=== PATIENT | male | born 1975 | race African-American/Black ===

== ENCOUNTER 2016-09-19 14:12 | Emergency (ER) | payer MEDICAID, SELFPAY ==
[~2016-09-19 14:12] MED LIST: CLAR10CA3 PO; DULO30CA PO; ECOT81TA5 PO; GLIP5TAB8 PO; GLUC1000 PO; GLUC5TAB3 PO; LEVO75TA4 PO; LISI-542 PO; LYRI100C10 PO; METF1000 PO; OMEP40CA2 PO; SIMV20TA2 PO; TYLE325T5 PO; ZEST1TAB5 PO; ZOCO20TA PO
[2016-09-19] MEDS ORDERED: OXAZEPAM 15 MG CAP As Ordered ONE (14:59)
[2016-09-19 15:21] LABS: MEAN CORPUSCULAR HEMOGLOBIN 30.7 pg (27.0-33.0); MEAN CORPUSCULAR HGB CONC 33.2 g/dl (32.0-36.5); MEAN CORPUSCULAR VOLUME 92.4 fl (80.0-96.0); RED CELL DISTRIBUTION WIDTH 14.2 % (11.5-14.5); WHITE BLOOD COUNT 7.8 K/mm3 (4.0-10.0)
[2016-09-19 15:39] LABS: AMPHETAMINES LEVEL URINE NEGATIVE (NEGATIVE); BENZODIAZEPINES URINE NEGATIVE (NEGATIVE); COCAINE METABOLITE URINE POSITIVE (NEGATIVE); CONTROL LINE INT CTR LINE PRESENT; METHADONE URINE NEGATIVE (NEGATIVE); OPIATES URINE NEGATIVE (NEGATIVE); TRICYCLIC ANTIDEPRESS URINE NEGATIVE (NEGATIVE)
[2016-09-19 16:02] LABS: ALBUMIN 3.9 GM/DL (3.2-5.2); ALKALINE PHOSPHATASE 73 U/L (45-117); ALT/SGPT 20 U/L (12-78); ANION GAP 11 MEQ/L (8-16); AST/SGOT 24 U/L (15-37); BILIRUBIN,DIRECT 0.1 MG/DL (0.0-0.2); BILIRUBIN,TOTAL 0.3 MG/DL (0.2-1.0); BLOOD UREA NITROGEN 7 MG/DL (7-18); CALCIUM LEVEL 9.1 MG/DL (8.5-10.1); CARBON DIOXIDE LEVEL 26 MEQ/L (21-32); CHLORIDE LEVEL 102 MEQ/L (98-107); CREATININE FOR GFR 1.05 MG/DL (0.70-1.30); GLOMERULAR FILTRATION RATE > 60.0 (>60); GLUCOSE, FASTING 236 MG/DL (70-105); POTASSIUM SERUM 4.2 MEQ/L (3.5-5.1); SODIUM LEVEL 139 MEQ/L (136-145); TOTAL PROTEIN 7.8 GM/DL (6.4-8.2)
--- NOTE | 2016-09-19 16:55 | ECGEPIP ---
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
--- NOTE | 2016-09-20 03:55 | EDDOCDS ---
Physician Documentation [facility] Name: Maryam Rhodes Age: 41 yrs Sex: Male : 1975 Arrival Date: 09/19/2016 Time: 14:12 Bed OBSERVATION Private MD: Cristal Santana C Disposition: 09/19/16 21:[address] [facility]. Diagnosis are Major depressive disorder, recurrent, Suicidal ideations. - Reason for transfer: Higher level of care. - Accepting physician is Dr Lott. - Condition is Stable. - Problem is an ongoing problem. - Symptoms are unchanged. Historical: - Allergies: no known allergies; - Home Meds: 1. aspirin 81 mg Oral chew 1 tab once daily (Last dose: Unknown) 2. glipizide 5 mg Oral tr24 1 tab once daily (Last dose: Unknown) 3. levothyroxine 75 mcg Oral tab 1 tab once daily (Last dose: Unknown) 4. simvastatin 20 mg Oral tab once daily (Last dose: Unknown) 5. Lyrica 100 mg Oral 2 times per day (Last dose: Unknown) 6. lisinopril 5 mg Oral tab once daily (Last dose: Unknown) 7. omeprazole 40 mg Oral cpDR 1 cap once daily (Last dose: Unknown) - PMHx: Diabetes - NIDDM: controlled; Hypercholesterolemia; Hypertension; Hypothyroidism; - PSHx: Knee Arthroplasty, Right; Knee Arthroplasty, Left; - Social history: Smoking status: Patient uses tobacco products, current some day smoker. Patient uses alcohol on a daily basis. street drugs, cocaine, No barriers to communication noted, The patient speaks fluent Burkin[place], Speaks appropriately for age. - Family history: Not pertinent. - : The pt / caregiver states he / she is not on anticoagulants. Home medication list is obtained from the patient. - Exposure Risk Screening:: None identified. Vital Signs: 09/19 14:13 BP 137 / 76; Pulse 119; Resp 18 S; Temp 98.1(O); Pulse Ox 98% on R/A; Weight 113.4 kg / gr2 250 lbs (R); Height 5 ft. 9 in. (175.26 cm) (R); Pain 4/10; 19:30 BP 136 / 72; Pulse 109; Resp 16; Temp 97.3(O); Pain 6/10; mf4 09/20 03:51 BP 136 / 76; Pulse 89; Resp 16; Temp 96.6(O); Pain 0/10; mf4 09/19 14:13 Body Mass Index 36.92 (113.40 kg, 175.26 cm) gr2 MDM: 09/19 14:28 Consult PFS/PSA/Motor Vehicles Supervisor ordered. sd1 14:28 Consult PFS/PSA/Motor Vehicles Supervisor: Patient's case requires discussion with on-call ca1 Psychiatrist ordered. 14:28 PSA/PFS to call Nursing Technical Sales Advisor, to enter patient data on [place] Safe Act if patient sd1 involuntarily admitted or transferred for SI or HI ordered. 14:28 Confirm accurate psychiatric medication list and times of last dosage ordered. sd1 14:28 Detain Pt Until Medically/PFS Cleared ordered. sd1 14:30 Acetaminophen Level Ordered. EDMS 14:30 Basic Metabolic Profile Ordered. EDMS 14:30 Complete Blood Count Ordered. EDMS 14:30 Drug Eval Toxicology ED Only Ordered. EDMS 14:30 Ethyl Alcohol (ethanol) Ordered. EDMS 14:30 Liver Profile Ordered. EDMS 14:30 Salicylate Level Ordered. EDMS 14:30 Thyroid Stimulating Hormone Ordered. EDMS 14:33 ECG WITH READING ER PHYS+CARDIAG ordered. EDMS 14:40 CREATINE PHOSPHOKINASE Ordered. EDMS 14:51 Financial registration complete. mpb 14:56 Oxazepam 30 mg PO once ordered. sd1 15:06 [facility] Payment Agreement was scanned into zerobound and attached to record. mpb 15:22 Consult PFS/PSA/Motor Vehicles Supervisor complete. bcj 15:22 Consult PFS/PSA/Motor Vehicles Supervisor: Patient's case requires discussion with on-call [facility] Psychiatrist complete. 15:29 Fingerstick Blood Sugar Ordered. EDMS 16:52 REGULAR DIET PLASTIC ALMA+DIET ordered. EDMS 17:22 PSA/PFS to call Nursing Technical Sales Advisor, to enter patient data [place] Safe [place] if patient jfb involuntarily admitted or transferred for SI or HI complete. 18:41 Acetaminophen Level Reviewed. sd1 18:41 Basic Metabolic Profile Reviewed. sd1 18:41 Complete Blood Count Reviewed. sd1 18:41 Drug Eval Toxicology ED Only Reviewed. sd1 18:41 Ethyl Alcohol (ethanol) Reviewed. sd1 18:41 Salicylate Level Reviewed. sd1 18:41 Thyroid Stimulating Hormone Reviewed. sd1 18:41 CREATINE PHOSPHOKINASE Reviewed. sd1 18:41 Fingerstick Blood Sugar Reviewed. sd1 18:41 Liver Profile Reviewed. sd1 18:41 EKG-ADULT Reviewed. sd1 09/20 02:34 [facility] Legal paperwork was scanned into zerobound and attached to record. 1 Administered Medications: 09/19 15:22 Drug: Oxazepam 30 mg [oxazepam 15 mg capsule (2 caps)] Route: PO; [facility] Signatures: Dispatcher [employer] EDMS Mylene Cantu MD MD sd1 Ricardo Ch, RN RN bcj Charmaine Ngo,RN RN kr3 Jessika Acosta, CARLIN PSA jfb Norma Fernandez, CARLIN PSA hm1 Dipak Workman,DAMPER WORKER DAMPER WORKER mf4 Kevin Alejo DO DO cs11 Long Marie, Fidel Reg mpb The chart was reviewed and I authenticate all verbal orders and agree with the evaluation and treatment provided.Corrections: (The following items were deleted from the chart) 14:40 14:33 CREATINE PHOSPHOKINASE+LAB ordered. EDMS EDMS Attachments: 15:06 [facility] Payment Agreement mpb MTDD
--- NOTE | 2016-09-20 03:57 | EDDOCDS ---
Nurse's Notes [facility] Name: Kiarra Rhodes Age: 41 yrs Sex: Male : 1975 Arrival Date: 09/19/2016 Time: 14:12 Bed OBSERVATION Private MD: Cristal Santana C Diagnosis: Major depressive disorder, recurrent;Suicidal ideations Presentation: 09/19 14:17 Presenting complaint: Patient states: homeless for 1 month. reports split with and kr3 had been drinking and using drugs. Reports feeling hopeless, with nothing to live for. No specific plan. Has not been on regular meds for over 1 month. Mental Health Triage Level: Level 2: The patient displays active suicidal ideations. Adult Sepsis Screening: The patient does not have new or worsening altered mentation. Patient's respiratory rate is less than 22. Systolic blood pressure is greater than 100. Patient has a qSOFA score of 0- Negative Sepsis Screen. Suicide/Homicide risk assessment- The patient admits to and/or has been reported to be having suicidal ideations. The patient reports that he/she has a recent or current history of substance abuse. 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 Transition of care: patient was not received from another setting of care. 14:17 Acuity: MENA Level 3 kr3 14:17 Method Of Arrival: Walkin/Carried/Asstd kr3 Triage Assessment: 14:20 General: Appears in no apparent distress, Behavior is appropriate for age. Pain: kr3 Location: left knee and right knee. HIV screening NA for this visit Offered previously. The patient is triaged at the bedside. See Assessment in Nurses Notes section of ED record. Neurological: Level of Consciousness is awake, alert. Respiratory: Respiratory effort is even, unlabored. Derm: Skin is normal. Historical: - Allergies: no known allergies; - Home Meds: 1. aspirin 81 mg Oral chew 1 tab once daily (Last dose: Unknown) 2. glipizide 5 mg Oral tr24 1 tab once daily (Last dose: Unknown) 3. levothyroxine 75 mcg Oral tab 1 tab once daily (Last dose: Unknown) 4. simvastatin 20 mg Oral tab once daily (Last dose: Unknown) 5. Lyrica 100 mg Oral 2 times per day (Last dose: Unknown) 6. lisinopril 5 mg Oral tab once daily (Last dose: Unknown) 7. omeprazole 40 mg Oral cpDR 1 cap once daily (Last dose: Unknown) - PMHx: Diabetes - NIDDM: controlled; Hypercholesterolemia; Hypertension; Hypothyroidism; - PSHx: Knee Arthroplasty, Right; Knee Arthroplasty, Left; - Social history: Smoking status: Patient uses tobacco products, current some day smoker. Patient uses alcohol on a daily basis. street drugs, cocaine, No barriers to communication noted, The patient speaks fluent Estonian, Speaks appropriately for age. - Family history: Not pertinent. - : The pt / caregiver states he / she is not on anticoagulants. Home medication list is obtained from the patient. - Exposure Risk Screening:: None identified. Screenin:55 Screening information is obtained from the patient. Fall risk: No risks identified. bcj Assistance ADL's: requires no assistance with activities of daily living. Abuse/DV Screen: The patient / caregiver reports he/she is: not in a situation that causes fear, pain or injury. Nutritional screening: No deficits noted. Advance Directives: Currently, there is no health care proxy. home support is inadequate. Assessment: 14:55 General: Appears in no apparent distress, comfortable, Behavior is cooperative. Pain: bcj Denies pain. Neurological: Level of Consciousness is awake, alert, Oriented to person, place, time. Derm: Skin is pink, warm & dry. 18:48 General: Appears in no apparent distress, comfortable, Behavior is cooperative. Pain: bcj Denies pain. Neurological: Level of Consciousness is awake, alert. Derm: Skin is pink, warm & dry. 19:30 General: Appears in no apparent distress, comfortable, to be sleeping. General: pt mf4 resting on stretcher, snoring, awaken to name no c/o . Respiratory: No deficits noted. Airway is patent Respiratory effort is even, unlabored. 20:30 General: Appears in no apparent distress, comfortable, to be sleeping. Behavior is mf4 appropriate for age. Respiratory: No deficits noted. Airway is patent Respiratory effort is even, unlabored. 21:30 General: Appears in no apparent distress, comfortable, to be sleeping. Respiratory: mf4 Airway is patent Respiratory effort is even, unlabored. 22:30 General: Appears in no apparent distress, comfortable, Behavior is appropriate for age, mf4 cooperative. Respiratory: No deficits noted. Airway is patent Respiratory effort is even, unlabored. 23:29 General: Appears in no apparent distress, comfortable, to be sleeping. Behavior is mf4 appropriate for age, cooperative. Respiratory: Airway is patent Respiratory effort is even, unlabored. 23:41 General: Appears in no apparent distress, comfortable, Behavior is appropriate for age, af2 cooperative, Pt observed resting on stretcher quietly with eyes closed. Voices no complaints.. 09/20 00:30 General: Appears in no apparent distress, comfortable, to be sleeping. Behavior is mf4 appropriate for age. Respiratory: No deficits noted. Airway is patent Respiratory effort is even, unlabored. 01:30 General: Appears in no apparent distress, comfortable, to be sleeping. Behavior is mf4 appropriate for age, cooperative. General: pt resting on stretcher no s/s of distress. Respiratory: No deficits noted. 02:55 General: discussed with pt plan of care to be transported soon to another facility mf4 verbal understanding, bathroom offered at this time . 03:29 General: Appears in no apparent distress, comfortable, to be sleeping. General: Appears mf4 to be sleeping. Behavior is awaiting transfer to another facility . Respiratory: No deficits noted. Airway is patent Respiratory effort is even, unlabored. 03:51 Reassessment: Patient appears in no apparent distress at this time. mf4 Mental Health Eval: 09/19 17:30 Status: The patient is not a shipping services sales representative or dependent. [facility]: The patient is not an established patient of [facility]. Referral Information: Evaluation referral is generated by the patient himself / herself. The patient was referred for evaluation because PT +SI. Subjective: The patients chief complaint is PT was admitted to [facility] 03/2016 for similar presentation. PT presents stating "I don't think I should be out there" meaning he does not feel safe to be in the community right now as he has been having frequent SI but denies a plan. PT states that he has had an escalation in symptoms over the past few weeks due to being homeless as he and his are estranged again. PT admits to feeling hopeless and cannot see a positive future for himself. For 4 years PT has been applying, getting denied and then appealing with social security stating he has had both knees replaced and that causes him difficulty. Financially he is struggling but he has managed to find a place to sleep and has not been sleeping outside. PT drinks alcohol daily "As much as I can" and has been abusing cocaine and crack. He denies he will have withdrawal symptoms. When PT was discharged in March he was scheduled to be seen for mental health at [facility] and for addictions treatment at [facility]. PT states that he did go to [facility] but quickly discontinued and that he did the initial evaluation with [facility] but did not return for follow up. . Delusions are denied. Patient's mood is depressed, Hallucinations are denied. Mental Health history: depression, abusing cocaine. crack cocaine. suicide ideation no plan Mental Health Admissions: 03/2016 [facility] Current Outpatient Mental Health Services: None. Current living environment is homeless. The patient is . Patient presents to Emergency Department with the following symptoms within the past 2 weeks: erratic appetite depressed mood, drug abuse, feelings of helplessness/hopelessness, marital problem, sleep disturbance - erratic suicidal ideation with no plan. Substance abuse: Patient uses beer, of liquor, daily. Patient uses cocaine, and crack . Mental status exam: Patients appearance is appropriate, Patient's behavior is cooperative, Speech is normal. Affect is flat. Mood is depressed. Hallucinations are denied. Appetite is erratic possibly due to drug abuse Memory is good. Energy level is normal. Content of thought is depressive. cannot CFS Thought process is intact. Cognitive level is oriented to person, place, time and situation Patient's insight is fair. Judgement is fair. Rapport with interviewer is good. Suicidal Ideation is present with no specific plan. Homicidal ideation is denied. Disposition: Medically cleared for disposition by Mylene Cantu MD Psychiatric Consult is performed by phone with Dr Mason Nicolas MD. [facility] Admission Criteria: The patient is experiencing suicidal ideation. The patient requires continuous observation and/or control to protect self, others or property. The patient's care requires a multi-modal treatment plan under close supervision and coordination due to the complexity and severity of the patient's symptoms. Legal Status: Patient's legal status will be [facility] admission: . DSM-V Differential Diagnosis: Unspecified Depressive Disorder (F32.9). 21:04 Narrative: No available beds [facility] ms 21:59 Narrative: Pt. accepted to [facility] . ms Psych: 14:56 Mental Health Triage Level: Level 2: The patient displays active suicidal ideations. [facility] 14:56 Subjective: The patients chief complaint is homeless doesn't want to live anymore. Delusions are denied. Patient's mood is depressed, Hallucinations are denied. 14:56 Objective: Patient is cooperative, Speech is normal. Affect is flat. 14:56 Substance abuse: Patient uses Last use was 12 hours ago. Patient uses cocaine, Last use was has been using crack x 1 month. Vital Signs: 14:13 BP 137 / 76; Pulse 119; Resp 18 S; Temp 98.1(O); Pulse Ox 98% on R/A; Weight 113.4 kg gr2 (R); Height 5 ft. 9 in. (175.26 cm) (R); Pain 4/10; 19:30 BP 136 / 72; Pulse 109; Resp 16; Temp 97.3(O); Pain 6/10; mf4 02 03:51 BP 136 / 76; Pulse 89; Resp 16; Temp 96.6(O); Pain 0/10; mf4 02 14:13 Body Mass Index 36.92 (113.40 kg, 175.26 cm) gr2 Vitals: 09/19 14:13 Log In Time: September 19, 2016 at 14:13. RN notified that patient meets Red Flag gr2 criteria. ED Course: 14:13 Patient visited by Baudilio Sumner. gr2 14:13 Cristal Santana is Private Physician. gr2 14:13 Patient moved to Waiting gr2 14:16 Patient visited by Baudilio Sumner. gr2 14:19 Triage Initiated kr3 14:21 Patient moved to [facility] kr3 14:25 Patient visited by Hamlet Alvarado. dpm 14:40 Pt greeted and oriented to ED. Patient advised of names of staff involved in care, dpm location of call bustos, wait times and NPO status. Patient has correct armband on for positive identification. Placed in gown. Placed in psych safe attire. Security observing. Property removed, inventory done, secured in belongings bag- placed in locked locker. Placed in locker 3. Psych Safety Check: Location: Psych Room. Visual Assessment: Cooperative. 14:41 Mylene Cantu MD is Attending Physician. sd1 14:41 Patient visited by Mylene Cantu MD. sd1 14:55 Resting quietly. Awaiting ED physician evaluation. bcj 14:55 The patient / caregiver is instructed regarding the plan of care and ED course. bcj 14:57 Patient visited by Ricardo Ch RN. bcj 15:06 [facility] Payment Agreement was scanned into [employer] and attached to record. mpb 15:08 Patient visited by Kinjal Galindo PCA. jam1 15:22 Labs drawn. (by ED staff). Sent per order to lab. Urine collected. Clean catch [facility] specimen. Urine specimen sent to lab. 15:23 Patient visited by Ricardo Ch RN. bcj 15:23 Patient visited by Kinjal Galindo PCA. jam1 15:42 Patient visited by Hamlet Alvarado. dpm 16:09 Patient visited by Hamlet Alvarado. dpm 16:22 Patient visited by Hamlet Alvarado. dpm 16:37 Patient visited by Hamlet Alvarado. dpm 16:52 Patient visited by Hamlet Alvarado. dpm 17:07 Patient visited by Hamlet Alvarado. dpm 17:19 EKG-ADULT Returned. EDMS 17:37 Patient visited by Hamlet Alvarado. dpm 18:00 Patient visited by Hamlet Alvarado. dpm 18:34 Patient visited by Hamlet Alvarado. dpm 18:46 Patient visited by Tamiko Daley PCA. tmm1 18:48 No apparent distress. Resting quietly. Awaiting disposition. bcj 18:48 Security observing. bcj 18:49 Patient visited by Ricardo Ch RN. bcj 18:55 Attending Physician role handed off by Mylene Cantu MD cs11 18:55 Kevin Alejo DO is Attending Physician. cs11 19:06 Patient visited by Hamlet Alvarado. dpm 19:23 Patient visited by Tamiko Daley PCA. tmm1 19:43 Patient visited by Tamiko Daley PCA. tmm1 20:02 Patient visited by Tamiko Daley PCA. tmm1 20:16 Patient visited by Tamiko Daley PCA. tmm1 20:36 Patient visited by Tamiko Daley PCA. tmm1 21:00 Patient visited by Tamiko Daley PCA. tmm1 21:10 Patient moved to OBSERVATION cs11 21:13 Patient visited by Tamiko Daley PCA. tmm1 21:14 Psych Safety Check: Location: Psych Room. Visual Assessment: Sleeping. tmm1 21:38 Psych Safety Check: Location: Psych Room. Visual Assessment: Sleeping. tmm1 21:56 Psych Safety Check: Location: Psych Room. Visual Assessment: Sleeping. tmm1 22:26 Psych Safety Check: Location: Psych Room. Visual Assessment: Sleeping. tmm1 22:41 Psych Safety Check: Location: Psych Room. Visual Assessment: Sleeping. tmm1 23:04 Psych Safety Check: Location: Psych Room. Visual Assessment: Sleeping. tmm1 23:20 Psych Safety Check: Location: Psych Room. Visual Assessment: Sleeping. tmm1 23:38 Psych Safety Check: Location: Psych Room. Visual Assessment: Sleeping. tmm1 23:39 Patient visited by Sheba Jimenez RN. af2 23:41 No IV's were initiated during this patient's visit. No procedures done that require af2 assistance. 23:42 Patient visited by Sheba Jimenez RN. af2 02/06 00:00 Psych Safety Check: Location: Psych Room. Visual Assessment: Sleeping. tmm1 00:15 Psych Safety Check: Location: Psych Room. Visual Assessment: Sleeping. tmm1 00:30 Psych Safety Check: Location: Psych Room. Visual Assessment: Sleeping. tmm1 00:45 Psych Safety Check: Location: Psych Room. Visual Assessment: Sleeping. tmm1 01:00 Psych Safety Check: Location: Psych Room. Visual Assessment: Sleeping, Cooperative. tmm1 01:15 Psych Safety Check: Location: Psych Room. Visual Assessment: Sleeping. tmm1 01:30 Psych Safety Check: Location: Psych Room. Visual Assessment: Sleeping. tmm1 01:49 Psych Safety Check: Location: Psych Room. Visual Assessment: Sleeping. tmm1 01:59 Psych Safety Check: Location: Psych Room. Visual Assessment: Sleeping. tmm1 02:34 [facility] Legal paperwork was scanned into [employer] and attached to record. hm1 02:49 Psych Safety Check: Location: Psych Room. Visual Assessment: Sleeping. tmm1 02:53 Patient visited by Disha Garrido Unit Clerk. jlm 03:06 Patient visited by Disha Garrido Fender Finisher. magalis 03:28 Patient visited by Disha Garrido Fender Finisher. magalis 03:47 Patient visited by Disha Garrido Unit Clerk. magalis Administered Medications: 09/19 15:22 Drug: Oxazepam 30 mg [oxazepam 15 mg capsule (2 caps)] Route: PO; [facility] Attachments: 09/20 02:34 MHE Legal paperwork hm1 Order Results: Lab Order: Acetaminophen Level; SPEC'M 09/19/16 15:14 Test: ACETAMINOPHEN LEVEL; Value: < 2.0; Range: 10.0-30.0; Abnormal: Below low normal; Units: UG/ML; Status: F Lab Order: Basic Metabolic Profile; SPEC'M 09/19/16 15:14 Test: GLUCOSE, FASTING; Value: 236; Range: 70-105; Abnormal: Above high normal; Units: MG/DL; Status: F Test: BLOOD UREA NITROGEN; Value: 7; Range: 7-18; Units: MG/DL; Status: F Test: CREATININE FOR GFR; Value: 1.05; Range: 0.70-1.30; Units: MG/DL; Status: F Test: GLOMERULAR FILTRATION RATE; Value: > 60.0; Range: >60; Status: F Test: SODIUM LEVEL; Value: 139; Range: 136-145; Units: MEQ/L; Status: F Test: POTASSIUM SERUM; Value: 4.2; Range: 3.5-5.1; Units: MEQ/L; Status: F Test: CHLORIDE LEVEL; Value: 102; Range: 98-107; Units: MEQ/L; Status: F Test: CARBON DIOXIDE LEVEL; Value: 26; Range: 21-32; Units: MEQ/L; Status: F Test: ANION GAP; Value: 11; Range: 8-16; Units: MEQ/L; Status: F Test: CALCIUM LEVEL; Value: 9.1; Range: 8.5-10.1; Units: MG/DL; Status: F Test Note: ; Units are mL/min/1.73 m2 Chronic Kidney Disease Staging per NKF: Stage I & II GFR >=60 Normal to Mildly Decreased Stage III GFR 30-59 Moderately Decreased Stage IV GFR 15-29 Severely Decreased Stage V GFR <15 Very Little GFR Left ESRD GFR <15 on HEAD TEACHER Lab Order: Complete Blood Count; SPEC'M 09/19/16 15:14 Test: WHITE BLOOD COUNT; Value: 7.8; Range: 4.0-10.0; Units: K/mm3; Status: F Test: RED BLOOD COUNT; Value: 4.26; Range: 4.30-6.10; Abnormal: Below low normal; Units: M/mm3; Status: F Test: HEMOGLOBIN; Value: 13.1; Range: 14.0-18.0; Abnormal: Below low normal; Units: g/dl; Status: F Test: HEMATOCRIT; Value: 39.3; Range: 42.0-52.0; Abnormal: Below low normal; Units: %; Status: F Test: MEAN CORPUSCULAR VOLUME; Value: 92.4; Range: 80.0-96.0; Units: fl; Status: F Test: MEAN CORPUSCULAR HEMOGLOBIN; Value: 30.7; Range: 27.0-33.0; Units: pg; Status: F Test: MEAN CORPUSCULAR HGB CONC; Value: 33.2; Range: 32.0-36.5; Units: g/dl; Status: F Test: RED CELL DISTRIBUTION WIDTH; Value: 14.2; Range: 11.5-14.5; Units: %; Status: F Test: PLATELET COUNT, AUTOMATED; Value: 315; Range: 150-450; Units: k/mm3; Status: F Lab Order: Drug Eval Toxicology ED Only; SPEC'M 09/19/16 15:14 Test: AMPHETAMINES LEVEL URINE; Value: NEGATIVE; Range: NEGATIVE; Status: F Test: BARBITURATES URINE; Value: NEGATIVE; Range: NEGATIVE; Status: F Test: BENZODIAZEPINES URINE; Value: NEGATIVE; Range: NEGATIVE; Status: F Test: CANNABINOIDS URINE; Value: NEGATIVE; Range: NEGATIVE; Status: F Test: COCAINE METABOLITE URINE; Value: POSITIVE; Range: NEGATIVE; Abnormal: Above high normal; Status: F Test: METHADONE URINE; Value: NEGATIVE; Range: NEGATIVE; Status: F Test: OPIATES URINE; Value: NEGATIVE; Range: NEGATIVE; Status: F Test: TRICYCLIC ANTIDEPRESS URINE; Value: NEGATIVE; Range: NEGATIVE; Status: F Test Note: ; ALL PRESUMPTIVE POSITIVE FINDINGS ARE UNCONFIRMED NORMAL VALUES THRESHOLD IN NG/ML AMPHETAMINES 1000 METHAMPHETAMINES 1000 BARBITURATES 300 BENZODIAZEPINES 300 CANNABINOIDS (THC) 50 COCAINE METABOLITE 300 METHADONE 300 OPIATES 300 PHENCYCLIDINE 25 TRICYCLIC ANTIDEPRESSANTS 1000 RESULTS ARE FOR MEDICAL PURPOSES ONLY. ALL URINE SPECIMENS WILL BE SAVED FOR 3 DAYS. IF CONFIRMATION OF A PRESUMPTIVE POSTIVE SCREEN RESULT IS DESIRED, CALL CHEMISTRY ([phone]) AND REQUEST URINE TO BE SENT TO REFERENCE LAB. FOR A LIST OF CLOSELY RELATED COMPOUNDS PLEASE CALL THE LAB. Lab Order: Ethyl Alcohol (ethanol); SPEC' 09/19/16 15:14 Test: ETHYL ALCOHOL (ETHANOL); Value: 0.059; Range: 0.000-0.010; Abnormal: Above high normal; Units: %; Status: F Lab Order: Liver Profile; SPEC 09/19/16 15:14 Test: AST/SGOT; Value: 24; Range: 15-37; Units: U/L; Status: F Test: ALT/SGPT; Value: 20; Range: 12-78; Units: U/L; Status: F Test: ALKALINE PHOSPHATASE; Value: 73; Range: 45-117; Units: U/L; Status: F Test: BILIRUBIN,TOTAL; Value: 0.3; Range: 0.2-1.0; Units: MG/DL; Status: F Test: BILIRUBIN,DIRECT; Value: 0.1; Range: 0.0-0.2; Units: MG/DL; Status: F Test: TOTAL PROTEIN; Value: 7.8; Range: 6.4-8.2; Units: GM/DL; Status: F Test: ALBUMIN; Value: 3.9; Range: 3.2-5.2; Units: GM/DL; Status: F Test: ALBUMIN/GLOBULIN RATIO; Value: 1.00; Range: 1.00-1.93; Status: F Lab Order: Salicylate Level; SPEC09/19/16 15:14 Test: SALICYLATE LEVEL; Value: 3.1; Range: 5.0-30.0; Abnormal: Below low normal; Units: MG/DL; Status: F Lab Order: Thyroid Stimulating Hormone; SPEC09/19/16 15:14 Test: THYROID STIMULATING HORMONE; Value: 12.300; Range: 0.358-3.740; Abnormal: Above high normal; Units: uIU/ML; Status: F Lab Order: CREATINE PHOSPHOKINASE; SPEC'M 09/19/16 15:14 Test: CPK CREATINE PHOSPHOKINASE; Value: 401; Range: 39-308; Abnormal: Above high normal; Units: U/L; Status: F Lab Order: Fingerstick Blood Sugar; SPEC'M 09/19/16 15:09 Test: BEDSIDE GLUCOSE; Value: 241; Range: 70-105; Abnormal: Above high normal; Units: MG/DL; Status: F Radiology Order: EKG-ADULT Test: EKG-ADULT REASON FOR EXAMINATION: psych; Stationary ECG Study; [facility] - ED; ; Test Date: 2016-09-19; Pat Name: KIARRA RHODES Department:; Room: -; Gender: M 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 cs11 23:38 Admission hand-off: Report called to Stephen Santiago RN at [facility] af2 09/20 00:20 Discharge Assessment: patient administered narcotics - no. af2 03:52 The following High Risk Discharge criteria are identified: None. [facility] [address] [facility] to accompanying personnel Tamiko Gregorio, Sofía Gregorio, Transfer form completed. Condition: stable. No special radiology studies were completed. 03:54 [facility] the ED. [facility] Signatures: Dispatcher [employer] EDMylene Messer MD MD sd1 Johnson, Bruce, RN RN Kinjal Thurman PCA OPEN HEARTH WORKER jam1 Ashwini Bustillo PSA PSA Charmaine Onofre RN RN kr3 Jessika Acosta, PSA PSA jfb Norma Fernandez, PSA PSA hm1 Dipak Workman,TYPEWRITER ASSEMBLER TYPEWRITER ASSEMBLER mf4 Hamlet Alvarado dpKevin Cortez, DO DO cs11 McLear, Tamiko, OPEN HEARTH WORKER OPEN HEARTH WORKER tmm1 Baudilio Sumner gr2 Disha Garrido, Fender Finisher Unit Sheba Weller,JOSE ANTONIO RN af2 Long Marie, Reg Reg mpb MTDD
--- NOTE | 2016-09-22 04:55 | EDDOCDS ---
Physician Documentation [facility] Name: Maryam Rhodes Age: 41 yrs Sex: Male : 1975 Arrival Date: 09/19/2016 Time: 14:12 Bed OBSERVATION Private MD: Cristal Santana C Disposition: 09/19/16 21:24 Transfer ordered to [facility]. Diagnosis are Major depressive disorder, recurrent, Suicidal ideations. - Reason for transfer: Higher level of care. - Accepting physician is Dr Lott. - Condition is Stable. - Problem is an ongoing problem. - Symptoms are unchanged. Historical: - Allergies: no known allergies; - Home Meds: 1. aspirin 81 mg Oral chew 1 tab once daily (Last dose: Unknown) 2. glipizide 5 mg Oral tr24 1 tab once daily (Last dose: Unknown) 3. levothyroxine 75 mcg Oral tab 1 tab once daily (Last dose: Unknown) 4. simvastatin 20 mg Oral tab once daily (Last dose: Unknown) 5. Lyrica 100 mg Oral 2 times per day (Last dose: Unknown) 6. lisinopril 5 mg Oral tab once daily (Last dose: Unknown) 7. omeprazole 40 mg Oral cpDR 1 cap once daily (Last dose: Unknown) - PMHx: Diabetes - NIDDM: controlled; Hypercholesterolemia; Hypertension; Hypothyroidism; - PSHx: Knee Arthroplasty, Right; Knee Arthroplasty, Left; - Social history: Smoking status: Patient uses tobacco products, current some day smoker. Patient uses alcohol on a daily basis. street drugs, cocaine, No barriers to communication noted, The patient speaks fluent [place], Speaks appropriately for age. - Family history: Not pertinent. - : The pt / caregiver states he / she is not on anticoagulants. Home medication list is obtained from the patient. - Exposure Risk Screening:: None identified. Vital Signs: 09/19 14:13 BP 137 / 76; Pulse 119; Resp 18 S; Temp 98.1(O); Pulse Ox 98% on R/A; Weight 113.4 kg / gr2 250 lbs (R); Height 5 ft. 9 in. (175.26 cm) (R); Pain 4/10; 19:30 BP 136 / 72; Pulse 109; Resp 16; Temp 97.3(O); Pain 6/10; mf4 09/20 03:51 BP 136 / 76; Pulse 89; Resp 16; Temp 96.6(O); Pain 0/10; mf4 09/19 14:13 Body Mass Index 36.92 (113.40 kg, 175.26 cm) gr2 MDM: 09/19 14:28 Consult PFS/PSA/Biscuit Packer ordered. sd1 14:28 Consult PFS/PSA/Biscuit Packer: Patient's case requires discussion with on-call [place] Psychiatrist ordered. 14:28 PSA/PFS to call [employer], to enter patient data on [place] Safe [place] if patient sd1 involuntarily admitted or transferred for SI or HI ordered. 14:28 Confirm accurate psychiatric medication list and times of last dosage ordered. sd1 14:28 Detain Pt Until Medically/PFS Cleared ordered. sd1 14:30 Acetaminophen Level Ordered. EDMS 14:30 Basic Metabolic Profile Ordered. EDMS 14:30 Complete Blood Count Ordered. EDMS 14:30 Drug Eval Toxicology ED Only Ordered. EDMS 14:30 Ethyl Alcohol (ethanol) Ordered. EDMS 14:30 Liver Profile Ordered. EDMS 14:30 Salicylate Level Ordered. EDMS 14:30 Thyroid Stimulating Hormone Ordered. EDMS 14:33 ECG WITH READING ER PHYS+CARDIAG ordered. EDMS 14:40 CREATINE PHOSPHOKINASE Ordered. EDMS 14:51 Financial registration complete. mpb 14:56 Oxazepam 30 mg PO once ordered. sd1 15:06 [facility] Payment Agreement was scanned into [employer] and attached to record. mpb 15:22 Consult PFS/PSA/Biscuit Packer complete. bcj 15:22 Consult PFS/PSA/Biscuit Packer: Patient's case requires discussion with on-call [facility] Psychiatrist complete. 15:29 Fingerstick Blood Sugar Ordered. EDMS 16:52 REGULAR DIET PLASTIC LAMA+DIET ordered. EDMS 17:22 PSA/PFS to call [employer], to enter patient data [place] Safe [place] if patient jfb involuntarily admitted or transferred for SI or HI complete. 18:41 Acetaminophen Level Reviewed. sd1 18:41 Basic Metabolic Profile Reviewed. sd1 18:41 Complete Blood Count Reviewed. sd1 18:41 Drug Eval Toxicology ED Only Reviewed. sd1 18:41 Ethyl Alcohol (ethanol) Reviewed. sd1 18:41 Salicylate Level Reviewed. sd1 18:41 Thyroid Stimulating Hormone Reviewed. sd1 18:41 CREATINE PHOSPHOKINASE Reviewed. sd1 18:41 Fingerstick Blood Sugar Reviewed. sd1 18:41 Liver Profile Reviewed. sd1 18:41 EKG-ADULT Reviewed. sd1 09/20 02:34 [facility] Legal paperwork was scanned into [employer] and attached to record. hm1 09:40 T-Sheet-- Draft Copy was scanned into [employer] and attached to record. gb 09:40 ECG/EKG was scanned into [employer] and attached to record. gb Administered Medications: 09/19 15:22 Drug: Oxazepam 30 mg [oxazepam 15 mg capsule (2 caps)] Route: PO; [facility] Signatures: Dispatcher [employer] EDMylene Messer MD MD sd1 Ricardo Ch, RN RN bcj Luz Elena Liu, Reg Reg gb Charmaine NgoRN RN kr3 Jessika Acosta, PSA PSA jfb Norma Fernandez, PSA PSA hm1 Dipak Workman,[employer]ALES [employer] SALES [employer] mf4 Kevin Alejo, DO cs11 Long Marie, Reg Reg mpb The chart was reviewed and I authenticate all verbal orders and agree with the evaluation and treatment provided.Corrections: (The following items were deleted from the chart) 14:40 14:33 CREATINE PHOSPHOKINASE+LAB ordered. EDKS EDMS Attachments: 15:06 [facility] Payment Agreement mpb 09:40 T-Sheet-- Draft Copy gb 09:40 ECG/EKG gb Chart Complete MTDD
--- NOTE | 2016-09-22 04:55 | EDDOCDS ---
Nurse's Notes [facility] Name: Kiarra Rhodes Age: 41 yrs Sex: Male : 1975 Arrival Date: 09/19/2016 Time: 14:12 Bed OBSERVATION Private MD: Cristal Santana C Diagnosis: Major depressive disorder, recurrent;Suicidal ideations Presentation: 09/19 14:17 Presenting complaint: Patient states: homeless for 1 month. reports split with and kr3 had been drinking and using drugs. Reports feeling hopeless, with nothing to live for. No specific plan. Has not been on regular meds for over 1 month. Mental Health Triage Level: Level 2: The patient displays active suicidal ideations. Adult Sepsis Screening: The patient does not have new or worsening altered mentation. Patient's respiratory rate is less than 22. Systolic blood pressure is greater than 100. Patient has a qSOFA score of 0- Negative Sepsis Screen. Suicide/Homicide risk assessment- The patient admits to and/or has been reported to be having suicidal ideations. The patient reports that he/she has a recent or current history of substance abuse. Status: Patient is not a visitor services specialist or dependent. Transition of care: patient was not received from another setting of care. 14:17 Acuity: MENA Level 3 kr3 14:17 Method Of Arrival: Walkin/Carried/Asstd kr3 Triage Assessment: 14:20 General: Appears in no apparent distress, Behavior is appropriate for age. Pain: kr3 Location: left knee and right knee. HIV screening NA for this visit Offered previously. The patient is triaged at the bedside. See Assessment in Nurses Notes section of ED record. Neurological: Level of Consciousness is awake, alert. Respiratory: Respiratory effort is even, unlabored. Derm: Skin is normal. Historical: - Allergies: no known allergies; - Home Meds: 1. aspirin 81 mg Oral chew 1 tab once daily (Last dose: Unknown) 2. glipizide 5 mg Oral tr24 1 tab once daily (Last dose: Unknown) 3. levothyroxine 75 mcg Oral tab 1 tab once daily (Last dose: Unknown) 4. simvastatin 20 mg Oral tab once daily (Last dose: Unknown) 5. Lyrica 100 mg Oral 2 times per day (Last dose: Unknown) 6. lisinopril 5 mg Oral tab once daily (Last dose: Unknown) 7. omeprazole 40 mg Oral cpDR 1 cap once daily (Last dose: Unknown) - PMHx: Diabetes - NIDDM: controlled; Hypercholesterolemia; Hypertension; Hypothyroidism; - PSHx: Knee Arthroplasty, Right; Knee Arthroplasty, Left; - Social history: Smoking status: Patient uses tobacco products, current some day smoker. Patient uses alcohol on a daily basis. street drugs, cocaine, No barriers to communication noted, The patient speaks fluent Swedish, Speaks appropriately for age. - Family history: Not pertinent. - : The pt / caregiver states he / she is not on anticoagulants. Home medication list is obtained from the patient. - Exposure Risk Screening:: None identified. Screenin:55 Screening information is obtained from the patient. Fall risk: No risks identified. bcj Assistance ADL's: requires no assistance with activities of daily living. Abuse/DV Screen: The patient / caregiver reports he/she is: not in a situation that causes fear, pain or injury. Nutritional screening: No deficits noted. Advance Directives: Currently, there is no health care proxy. home support is inadequate. Assessment: 14:55 General: Appears in no apparent distress, comfortable, Behavior is cooperative. Pain: bcj Denies pain. Neurological: Level of Consciousness is awake, alert, Oriented to person, place, time. Derm: Skin is pink, warm & dry. 18:48 General: Appears in no apparent distress, comfortable, Behavior is cooperative. Pain: bcj Denies pain. Neurological: Level of Consciousness is awake, alert. Derm: Skin is pink, warm & dry. 19:30 General: Appears in no apparent distress, comfortable, to be sleeping. General: pt mf4 resting on stretcher, snoring, awaken to name no c/o . Respiratory: No deficits noted. Airway is patent Respiratory effort is even, unlabored. 20:30 General: Appears in no apparent distress, comfortable, to be sleeping. Behavior is mf4 appropriate for age. Respiratory: No deficits noted. Airway is patent Respiratory effort is even, unlabored. 21:30 General: Appears in no apparent distress, comfortable, to be sleeping. Respiratory: mf4 Airway is patent Respiratory effort is even, unlabored. 22:30 General: Appears in no apparent distress, comfortable, Behavior is appropriate for age, mf4 cooperative. Respiratory: No deficits noted. Airway is patent Respiratory effort is even, unlabored. 23:29 General: Appears in no apparent distress, comfortable, to be sleeping. Behavior is mf4 appropriate for age, cooperative. Respiratory: Airway is patent Respiratory effort is even, unlabored. 23:41 General: Appears in no apparent distress, comfortable, Behavior is appropriate for age, af2 cooperative, Pt observed resting on stretcher quietly with eyes closed. Voices no complaints.. 09/20 00:30 General: Appears in no apparent distress, comfortable, to be sleeping. Behavior is mf4 appropriate for age. Respiratory: No deficits noted. Airway is patent Respiratory effort is even, unlabored. 01:30 General: Appears in no apparent distress, comfortable, to be sleeping. Behavior is mf4 appropriate for age, cooperative. General: pt resting on stretcher no s/s of distress. Respiratory: No deficits noted. 02:55 General: discussed with pt plan of care to be transported soon to another facility mf4 verbal understanding, bathroom offered at this time . 03:29 General: Appears in no apparent distress, comfortable, to be sleeping. General: Appears mf4 to be sleeping. Behavior is awaiting transfer to another facility . Respiratory: No deficits noted. Airway is patent Respiratory effort is even, unlabored. 03:51 Reassessment: Patient appears in no apparent distress at this time. mf4 03:54 General: Appears in no apparent distress, comfortable, Behavior is cooperative, quiet. caleb Neurological: Level of Consciousness is awake, alert, obeys commands, Oriented to person, place, time, Speech is normal. Cardiovascular: No deficits noted. Respiratory: No deficits noted. Airway is patent Respiratory effort is even, unlabored, Respiratory pattern is regular, symmetrical. GI: No deficits noted. Abdomen is flat, non- distended. Derm: Skin is pink, warm & dry. Mental Health Eval: 09/19 17:30 Status: The patient is not a visitor services specialist or dependent. [facility]fb Behavioral Health: The patient is not an established patient of [facility] Behavioral Health. Referral Information: Evaluation referral is generated by the patient himself / herself. The patient was referred for evaluation because PT +SI. Subjective: The patients chief complaint is PT was admitted to [facility] 03/2016 for similar presentation. PT presents stating "I don't think I should be out there" meaning he does not feel safe to be in the community right now as he has been having frequent SI but denies a plan. PT states that he has had an escalation in symptoms over the past few weeks due to being homeless as he and his are estranged again. PT admits to feeling hopeless and cannot see a positive future for himself. For 4 years PT has been applying, getting denied and then appealing with social security stating he has had both knees replaced and that causes him difficulty. Financially he is struggling but he has managed to find a place to sleep and has not been sleeping outside. PT drinks alcohol daily "As much as I can" and has been abusing cocaine and crack. He denies he will have withdrawal symptoms. When PT was discharged in March he was scheduled to be seen for mental health at [facility] and for addictions treatment at [facility]. PT states that he did go to [facility] but quickly discontinued and that he did the initial evaluation with [facility] but did not return for follow up. . Delusions are denied. Patient's mood is depressed, Hallucinations are denied. Mental Health history: depression, abusing cocaine. crack cocaine. suicide ideation no plan Mental Health Admissions: 03/2016 [facility] Current Outpatient Mental Health Services: None. Current living environment is homeless. The patient is . Patient presents to Emergency Department with the following symptoms within the past 2 weeks: erratic appetite depressed mood, drug abuse, feelings of helplessness/hopelessness, marital problem, sleep disturbance - erratic suicidal ideation with no plan. Substance abuse: Patient uses beer, of liquor, daily. Patient uses cocaine, and crack . Mental status exam: Patients appearance is appropriate, Patient's behavior is cooperative, Speech is normal. Affect is flat. Mood is depressed. Hallucinations are denied. Appetite is erratic possibly due to drug abuse Memory is good. Energy level is normal. Content of thought is depressive. cannot CFS Thought process is intact. Cognitive level is oriented to person, place, time and situation Patient's insight is fair. Judgement is fair. Rapport with interviewer is good. Suicidal Ideation is present with no specific plan. Homicidal ideation is denied. Disposition: Medically cleared for disposition by Mylene Cantu MD Psychiatric Consult is performed by phone with Dr Mason Nicolas MD. [facility] Admission Criteria: The patient is experiencing suicidal ideation. The patient requires continuous observation and/or control to protect self, others or property. The patient's care requires a multi-modal treatment plan under close supervision and coordination due to the complexity and severity of the patient's symptoms. Legal Status: Patient's legal status will be [facility] admission: 9.37. DSM-V Differential Diagnosis: Unspecified Depressive Disorder (F32.9). 21:04 Narrative: No available beds \\\\ [facility] or [facility]. ms 21:59 Narrative: Pt. accepted to [facility] . ms Psych: 14:56 Mental Health Triage Level: Level 2: The patient displays active suicidal ideations. [facility] 14:56 Subjective: The patients chief complaint is homeless doesn't want to live anymore. Delusions are denied. Patient's mood is depressed, Hallucinations are denied. 14:56 Objective: Patient is cooperative, Speech is normal. Affect is flat. 14:56 Substance abuse: Patient uses Last use was 12 hours ago. Patient uses cocaine, Last use was has been using crack x 1 month. Vital Signs: 14:13 BP 137 / 76; Pulse 119; Resp 18 S; Temp 98.1(O); Pulse Ox 98% on R/A; Weight 113.4 kg gr2 (R); Height 5 ft. 9 in. (175.26 cm) (R); Pain 4/10; 19:30 BP 136 / 72; Pulse 109; Resp 16; Temp 97.3(O); Pain 6/10; mf4 09/20 03:51 BP 136 / 76; Pulse 89; Resp 16; Temp 96.6(O); Pain 0/10; mf4 02 14:13 Body Mass Index 36.92 (113.40 kg, 175.26 cm) gr2 Vitals: 09/19 14:13 Log In Time: September 19, 2016 at 14:13. RN notified that patient meets Red Flag gr2 criteria. ED Course: 14:13 Patient visited by Baudilio Sumner. gr2 14:13 Cristal Santana is Private Physician. gr2 14:13 Patient moved to Waiting gr2 14:16 Patient visited by Baudilio Sumner. gr2 14:19 Triage Initiated kr3 14:21 Patient moved to [facility] kr3 14:25 Patient visited by Hamlet Alvarado. dpm 14:40 Pt greeted and oriented to ED. Patient advised of names of staff involved in care, dpm location of call bustos, wait times and NPO status. Patient has correct armband on for positive identification. Placed in gown. Placed in psych safe attire. Security observing. Property removed, inventory done, secured in belongings bag- placed in locked locker. Placed in locker 3. Psych Safety Check: Location: Psych Room. Visual Assessment: Cooperative. 14:41 Mylene Cantu MD is Attending Physician. sd1 14:41 Patient visited by Mylene Cantu MD. sd1 14:55 Resting quietly. Awaiting ED physician evaluation. bcj 14:55 The patient / caregiver is instructed regarding the plan of care and ED course. bcj 14:57 Patient visited by Ricardo Ch RN. bcj 15:06 [facility] Payment Agreement was scanned into [employer] and attached to record. mpb 15:08 Patient visited by Kinjal Galindo PCA. jam1 15:22 Labs drawn. (by ED staff). Sent per order to lab. Urine collected. Clean catch j specimen. Urine specimen sent to lab. 15:23 Patient visited by Ricardo Ch RN. bcj 15:23 Patient visited by Kinjal Galindo PCA. jam1 15:42 Patient visited by Hamlet Alvarado. dpm 16:09 Patient visited by Hamlet Alvarado. dpm 16:22 Patient visited by Hamlet Alvarado. dpm 16:37 Patient visited by Hamlet Alvarado. dpm 16:52 Patient visited by Hamlet Alvarado. dpm 17:07 Patient visited by Hamlet Alvarado. dpm 17:19 EKG-ADULT Returned. EDMS 17:37 Patient visited by Hamlet Alvarado. dpm 18:00 Patient visited by Hamlet Alvarado. dpm 18:34 Patient visited by Hamlet Alvarado. dpm 18:46 Patient visited by Tamiko Daley PCA. tmm1 18:48 No apparent distress. Resting quietly. Awaiting disposition. bcj 18:48 Security observing. bcj 18:49 Patient visited by Ricardo Ch RN. bcj 18:55 Attending Physician role handed off by Mylene Cantu MD cs11 18:55 Kevin Alejo DO is Attending Physician. cs11 19:06 Patient visited by Hamlet Alvarado. dpm 19:23 Patient visited by Tamiko Daley PCA. tmm1 19:43 Patient visited by Tamiko Daley PCA. tmm1 20:02 Patient visited by Tamiko Daley PRINTING SHOP SUPERVISOR. tmm1 20:16 Patient visited by Tamiko Daley PCA. tmm1 20:36 Patient visited by Tamiko Daley PCA. tmm1 21:00 Patient visited by Tamiko Daley PCA. tmm1 21:10 Patient moved to OBSERVATION cs11 21:13 Patient visited by Tamiko Daley PCA. tmm1 21:14 Psych Safety Check: Location: Psych Room. Visual Assessment: Sleeping. tmm1 21:38 Psych Safety Check: Location: Psych Room. Visual Assessment: Sleeping. tmm1 21:56 Psych Safety Check: Location: Psych Room. Visual Assessment: Sleeping. tmm1 22:26 Psych Safety Check: Location: Psych Room. Visual Assessment: Sleeping. tmm1 22:41 Psych Safety Check: Location: Psych Room. Visual Assessment: Sleeping. tmm1 23:04 Psych Safety Check: Location: Psych Room. Visual Assessment: Sleeping. tmm1 23:20 Psych Safety Check: Location: Psych Room. Visual Assessment: Sleeping. tmm1 23:38 Psych Safety Check: Location: Psych Room. Visual Assessment: Sleeping. tmm1 23:39 Patient visited by Sheba Jimenez RN. af2 23:41 No IV's were initiated during this patient's visit. No procedures done that require af2 assistance. 23:42 Patient visited by Sheba Jimenez RN. af2 09/20 00:00 Psych Safety Check: Location: Psych Room. Visual Assessment: Sleeping. tmm1 00:15 Psych Safety Check: Location: Psych Room. Visual Assessment: Sleeping. tmm1 00:30 Psych Safety Check: Location: Psych Room. Visual Assessment: Sleeping. tmm1 00:45 Psych Safety Check: Location: Psych Room. Visual Assessment: Sleeping. tmm1 01:00 Psych Safety Check: Location: Psych Room. Visual Assessment: Sleeping, Cooperative. tmm1 01:15 Psych Safety Check: Location: Psych Room. Visual Assessment: Sleeping. tmm1 01:30 Psych Safety Check: Location: Psych Room. Visual Assessment: Sleeping. tmm1 01:49 Psych Safety Check: Location: Psych Room. Visual Assessment: Sleeping. tmm1 01:59 Psych Safety Check: Location: Psych Room. Visual Assessment: Sleeping. tmm1 02:34 [facility] Legal paperwork was scanned into [employer] and attached to record. hm1 02:49 Psych Safety Check: Location: Psych Room. Visual Assessment: Sleeping. tmm1 02:53 Patient visited by Disha Garrido Psychiatric Technician. jlm 03:06 Patient visited by Disha Garrido Psychiatric Technician. jlm 03:28 Patient visited by Disha Garrido, Psychiatric Technician. jlm 03:47 Patient visited by Disha Garrido Psychiatric Technician. jlm 09:40 T-Sheet-- Draft Copy was scanned into [employer] and attached to record. gb 09:40 ECG/EKG was scanned into [employer] and attached to record. gb Administered Medications: 09/19 15:22 Drug: Oxazepam 30 mg [oxazepam 15 mg capsule (2 caps)] Route: PO; [facility] Attachments: 09/20 02:34 [facility] Legal paperwork 1 Order Results: Lab Order: Acetaminophen Level; SPEC'M 09/19/16 15:14 Test: ACETAMINOPHEN LEVEL; Value: < 2.0; Range: 10.0-30.0; Abnormal: Below low normal; Units: UG/ML; Status: F Lab Order: Basic Metabolic Profile; SPEC'M 09/19/16 15:14 Test: GLUCOSE, FASTING; Value: 236; Range: 70-105; Abnormal: Above high normal; Units: MG/DL; Status: F Test: BLOOD UREA NITROGEN; Value: 7; Range: 7-18; Units: MG/DL; Status: F Test: CREATININE FOR GFR; Value: 1.05; Range: 0.70-1.30; Units: MG/DL; Status: F Test: GLOMERULAR FILTRATION RATE; Value: > 60.0; Range: >60; Status: F Test: SODIUM LEVEL; Value: 139; Range: 136-145; Units: MEQ/L; Status: F Test: POTASSIUM SERUM; Value: 4.2; Range: 3.5-5.1; Units: MEQ/L; Status: F Test: CHLORIDE LEVEL; Value: 102; Range: 98-107; Units: MEQ/L; Status: F Test: CARBON DIOXIDE LEVEL; Value: 26; Range: 21-32; Units: MEQ/L; Status: F Test: ANION GAP; Value: 11; Range: 8-16; Units: MEQ/L; Status: F Test: CALCIUM LEVEL; Value: 9.1; Range: 8.5-10.1; Units: MG/DL; Status: F Test Note: ; Units are mL/min/1.73 m2 Chronic Kidney Disease Staging per NKF: Stage I & II GFR >=60 Normal to Mildly Decreased Stage III GFR 30-59 Moderately Decreased Stage IV GFR 15-29 Severely Decreased Stage V GFR <15 Very Little GFR Left ESRD GFR <15 on REFRIGERATION MECHANIC Lab Order: Complete Blood Count; SPEC'M 09/19/16 15:14 Test: WHITE BLOOD COUNT; Value: 7.8; Range: 4.0-10.0; Units: K/mm3; Status: F Test: RED BLOOD COUNT; Value: 4.26; Range: 4.30-6.10; Abnormal: Below low normal; Units: M/mm3; Status: F Test: HEMOGLOBIN; Value: 13.1; Range: 14.0-18.0; Abnormal: Below low normal; Units: g/dl; Status: F Test: HEMATOCRIT; Value: 39.3; Range: 42.0-52.0; Abnormal: Below low normal; Units: %; Status: F Test: MEAN CORPUSCULAR VOLUME; Value: 92.4; Range: 80.0-96.0; Units: fl; Status: F Test: MEAN CORPUSCULAR HEMOGLOBIN; Value: 30.7; Range: 27.0-33.0; Units: pg; Status: F Test: MEAN CORPUSCULAR HGB CONC; Value: 33.2; Range: 32.0-36.5; Units: g/dl; Status: F Test: RED CELL DISTRIBUTION WIDTH; Value: 14.2; Range: 11.5-14.5; Units: %; Status: F Test: PLATELET COUNT, AUTOMATED; Value: 315; Range: 150-450; Units: k/mm3; Status: F Lab Order: Drug Eval Toxicology ED Only; SPEC'M 09/19/16 15:14 Test: AMPHETAMINES LEVEL URINE; Value: NEGATIVE; Range: NEGATIVE; Status: F Test: BARBITURATES URINE; Value: NEGATIVE; Range: NEGATIVE; Status: F Test: BENZODIAZEPINES URINE; Value: NEGATIVE; Range: NEGATIVE; Status: F Test: CANNABINOIDS URINE; Value: NEGATIVE; Range: NEGATIVE; Status: F Test: COCAINE METABOLITE URINE; Value: POSITIVE; Range: NEGATIVE; Abnormal: Above high normal; Status: F Test: METHADONE URINE; Value: NEGATIVE; Range: NEGATIVE; Status: F Test: OPIATES URINE; Value: NEGATIVE; Range: NEGATIVE; Status: F Test: TRICYCLIC ANTIDEPRESS URINE; Value: NEGATIVE; Range: NEGATIVE; Status: F Test Note: ; ALL PRESUMPTIVE POSITIVE FINDINGS ARE UNCONFIRMED NORMAL VALUES THRESHOLD IN NG/ML AMPHETAMINES 1000 METHAMPHETAMINES 1000 BARBITURATES 300 BENZODIAZEPINES 300 CANNABINOIDS (THC) 50 COCAINE METABOLITE 300 METHADONE 300 OPIATES 300 PHENCYCLIDINE 25 TRICYCLIC ANTIDEPRESSANTS 1000 RESULTS ARE FOR MEDICAL PURPOSES ONLY. ALL URINE SPECIMENS WILL BE SAVED FOR 3 DAYS. IF CONFIRMATION OF A PRESUMPTIVE POSTIVE SCREEN RESULT IS DESIRED, CALL CHEMISTRY ([phone]) AND REQUEST URINE TO BE SENT TO REFERENCE LAB. FOR A LIST OF CLOSELY RELATED COMPOUNDS PLEASE CALL THE LAB. Lab Order: Ethyl Alcohol (ethanol); SPEC'M 09/19/16 15:14 Test: ETHYL ALCOHOL (ETHANOL); Value: 0.059; Range: 0.000-0.010; Abnormal: Above high normal; Units: %; Status: F Lab Order: Liver Profile; SPEC'M 09/19/16 15:14 Test: AST/SGOT; Value: 24; Range: 15-37; Units: U/L; Status: F Test: ALT/SGPT; Value: 20; Range: 12-78; Units: U/L; Status: F Test: ALKALINE PHOSPHATASE; Value: 73; Range: 45-117; Units: U/L; Status: F Test: BILIRUBIN,TOTAL; Value: 0.3; Range: 0.2-1.0; Units: MG/DL; Status: F Test: BILIRUBIN,DIRECT; Value: 0.1; Range: 0.0-0.2; Units: MG/DL; Status: F Test: TOTAL PROTEIN; Value: 7.8; Range: 6.4-8.2; Units: GM/DL; Status: F Test: ALBUMIN; Value: 3.9; Range: 3.2-5.2; Units: GM/DL; Status: F Test: ALBUMIN/GLOBULIN RATIO; Value: 1.00; Range: 1.00-1.93; Status: F Lab Order: Salicylate Level; SPEC'M 09/19/16 15:14 Test: SALICYLATE LEVEL; Value: 3.1; Range: 5.0-30.0; Abnormal: Below low normal; Units: MG/DL; Status: F Lab Order: Thyroid Stimulating Hormone; SPEC'M 09/19/16 15:14 Test: THYROID STIMULATING HORMONE; Value: 12.300; Range: 0.358-3.740; Abnormal: Above high normal; Units: uIU/ML; Status: F Lab Order: CREATINE PHOSPHOKINASE; SPEC'09/19/16 15:14 Test: CPK CREATINE PHOSPHOKINASE; Value: 401; Range: 39-308; Abnormal: Above high normal; Units: U/L; Status: F Lab Order: Fingerstick Blood Sugar; SPEC'09/19/16 15:09 Test: BEDSIDE GLUCOSE; Value: 241; Range: 70-105; Abnormal: Above high normal; Units: MG/DL; Status: F Radiology Order: EKG-ADULT Test: EKG-ADULT REASON FOR EXAMINATION: psych; Stationary ECG Study; [facility] - ED; ; Test Date: 2016-09-19; Pat Name: KIARRA RHODES Department:; Room: -; Gender: M Garment Tag Stringer: ; : 1975 Requested By: Mylene Cantu; Order Number: [id number] Reading MD: Alex Cheney; Measurements; Intervals [place]; Rate: 102 P: 45; SD: 168 QRS: 32; QRSD: 81 T: 5; QT: 328; QTc: 427; Interpretive Statements; SINUS TACHYCARDIA; ST CHANGES LATERALLY CONSIDER ISCHEMIA V EARLY REPOLARIZATION; INFERIOR T WAVE ABNORMALITY; NO PRIORS; Electronically Signed On 09-19-2016 16:55:21 EST by Alex Cheney; Outcome: 09/19 21:24 ER care complete, transfer ordered by Provider. cs11 23:38 Admission hand-off: Report called to Stephen Santiago RN at [facility] af2 09/20 00:20 Discharge Assessment: patient administered narcotics - no. af2 03:52 The following High Risk Discharge criteria are identified: None. Transferred to [address] . by EMS ground [facility] ambulance report to accompanying personnel Tamiko Baca Basic, Sofía Lawson Basic, Transfer form completed. Condition: stable. No special radiology studies were completed. 03:54 Patient left the ED. [facility] Signatures: Dispatcher [employer] EDMS Mylene Cantu MD MD sd1 Ricardo hC, RN RN norris Craig, Veronika Albert, RN RN Kinjal Moreira, PRINTING SHOP SUPERVISOR PRINTING SHOP SUPERVISOR jam1 Stone, Ashwini, PSA PSA ms Luz Elena Liu, Reg Reg gb Charmaine Ngo,RN RN kr3 Jessika Acosta, PSA PSA jfb Norma Fernandez, PSA PSA hm1 Dipak Workman,HEADEND TECHNICIAN HEADEND TECHNICIAN [facility] Jenny, Hamlet dpm Kevin Alejo, DO DO cs11 Thuy, Tamiko, PRINTING SHOP SUPERVISOR PRINTING SHOP SUPERVISOR tmm1 Baudilio Sumner gr2 Disha Garrido, Psychiatric Technician Unit Sheba Weller,RN RN af2 Long Marie, Reg Reg mpb Chart Complete MTDD
--- NOTE | 2016-09-22 04:55 | EDDOCDS ---
Physician Documentation [facility] Name: Maryam Rhodes Age: 41 yrs Sex: Male : 1975 Arrival Date: 09/19/2016 Time: 14:12 Bed OBSERVATION Private MD: Cristal Santana C Disposition: 09/19/16 21:24 Transfer ordered to [facility]. Diagnosis are Major depressive disorder, recurrent, Suicidal ideations. - Reason for transfer: Higher level of care. - Accepting physician is Dr Lott. - Condition is Stable. - Problem is an ongoing problem. - Symptoms are unchanged. Historical: - Allergies: no known allergies; - Home Meds: 1. aspirin 81 mg Oral chew 1 tab once daily (Last dose: Unknown) 2. glipizide 5 mg Oral tr24 1 tab once daily (Last dose: Unknown) 3. levothyroxine 75 mcg Oral tab 1 tab once daily (Last dose: Unknown) 4. simvastatin 20 mg Oral tab once daily (Last dose: Unknown) 5. Lyrica 100 mg Oral 2 times per day (Last dose: Unknown) 6. lisinopril 5 mg Oral tab once daily (Last dose: Unknown) 7. omeprazole 40 mg Oral cpDR 1 cap once daily (Last dose: Unknown) - PMHx: Diabetes - NIDDM: controlled; Hypercholesterolemia; Hypertension; Hypothyroidism; - PSHx: Knee Arthroplasty, Right; Knee Arthroplasty, Left; - Social history: Smoking status: Patient uses tobacco products, current some day smoker. Patient uses alcohol on a daily basis. street drugs, cocaine, No barriers to communication noted, The patient speaks fluent Argentine, Speaks appropriately for age. - Family history: Not pertinent. - : The pt / caregiver states he / she is not on anticoagulants. Home medication list is obtained from the patient. - Exposure Risk Screening:: None identified. Vital Signs: 09/19 14:13 BP 137 / 76; Pulse 119; Resp 18 S; Temp 98.1(O); Pulse Ox 98% on R/A; Weight 113.4 kg / gr2 250 lbs (R); Height 5 ft. 9 in. (175.26 cm) (R); Pain 4/10; 19:30 BP 136 / 72; Pulse 109; Resp 16; Temp 97.3(O); Pain 6/10; mf4 09/20 03:51 BP 136 / 76; Pulse 89; Resp 16; Temp 96.6(O); Pain 0/10; mf4 09/19 14:13 Body Mass Index 36.92 (113.40 kg, 175.26 cm) gr2 MDM: 09/19 14:28 Consult PFS/PSA/Food And Beverage Cashier ordered. sd1 14:28 Consult PFS/PSA/Food And Beverage Cashier: Patient's case requires discussion with on-call al1 Psychiatrist ordered. 14:28 PSA/PFS to call Nursing Certified Nurses' Aide, to enter patient data on [place] Safe [place] if patient sd1 involuntarily admitted or transferred for SI or HI ordered. 14:28 Confirm accurate psychiatric medication list and times of last dosage ordered. sd1 14:28 Detain Pt Until Medically/PFS Cleared ordered. sd1 14:30 Acetaminophen Level Ordered. EDMS 14:30 Basic Metabolic Profile Ordered. EDMS 14:30 Complete Blood Count Ordered. EDMS 14:30 Drug Eval Toxicology ED Only Ordered. EDMS 14:30 Ethyl Alcohol (ethanol) Ordered. EDMS 14:30 Liver Profile Ordered. EDMS 14:30 Salicylate Level Ordered. EDMS 14:30 Thyroid Stimulating Hormone Ordered. EDMS 14:33 ECG WITH READING ER PHYS+CARDIAG ordered. EDMS 14:40 CREATINE PHOSPHOKINASE Ordered. EDMS 14:51 Financial registration complete. mpb 14:56 Oxazepam 30 mg PO once ordered. sd1 15:06 [facility] Payment Agreement was scanned into [employer] and attached to record. mpb 15:22 Consult PFS/PSA/Food And Beverage Cashier complete. bcj 15:22 Consult PFS/PSA/Food And Beverage Cashier: Patient's case requires discussion with on-call [facility] Psychiatrist complete. 15:29 Fingerstick Blood Sugar Ordered. EDMS 16:52 REGULAR DIET PLASTIC LAMA+DIET ordered. EDMS 17:22 PSA/PFS to call Nursing Certified Nurses' Aide, to enter patient data [place] Safe [place] if patient jfb involuntarily admitted or transferred for SI or HI complete. 18:41 Acetaminophen Level Reviewed. sd1 18:41 Basic Metabolic Profile Reviewed. sd1 18:41 Complete Blood Count Reviewed. sd1 18:41 Drug Eval Toxicology ED Only Reviewed. sd1 18:41 Ethyl Alcohol (ethanol) Reviewed. sd1 18:41 Salicylate Level Reviewed. sd1 18:41 Thyroid Stimulating Hormone Reviewed. sd1 18:41 CREATINE PHOSPHOKINASE Reviewed. sd1 18:41 Fingerstick Blood Sugar Reviewed. sd1 18:41 Liver Profile Reviewed. sd1 18:41 EKG-ADULT Reviewed. sd1 09/20 02:34 [facility] Legal paperwork was scanned into Pre[employer] and attached to record. hm1 09:40 T-Sheet-- Draft Copy was scanned into [employer] and attached to record. gb 09:40 ECG/EKG was scanned into [employer] and attached to record. gb Administered Medications: 09/19 15:22 Drug: Oxazepam 30 mg [oxazepam 15 mg capsule (2 caps)] Route: PO; [facility] Signatures: Dispatcher [employer] EDMylene Messer MD MD sd1 Ricardo Ch, RN RN bcj Luz Elena Liu, Reg Reg gb Charmaine NgoRN RN kr3 Jessika Acosta, PSA PSA jfb Norma Fernandez, PSA PSA hm1 Dipak Workman,METALIZER METALIZER mf4 Kevin Alejo, DO cs11 Long Marie, Reg Reg mpb The chart was reviewed and I authenticate all verbal orders and agree with the evaluation and treatment provided.Corrections: (The following items were deleted from the chart) 14:40 14:33 CREATINE PHOSPHOKINASE+LAB ordered. EDNM EDMS Attachments: 15:06 [facility] Payment Agreement mpb 09:40 T-Sheet-- Draft Copy gb 09:40 ECG/EKG gb Chart Complete MTDD
== END 2016-09-20 03:54 ==
LOC: M ED 14:12
DX: F19.10 Other psychoactive substance abuse, uncomplicated (principal); F10.10 Alcohol abuse, uncomplicated; F32.9 Major depressive disorder, single episode, unspecified; R45.851 Suicidal ideations; R94.31 Abnormal electrocardiogram [ECG] [EKG]; E11.9 Type 2 diabetes mellitus without complications; I10 Essential (primary) hypertension; E03.9 Hypothyroidism, unspecified; E78.00 Pure hypercholesterolemia, unspecified; F17.200 Nicotine dependence, unspecified, uncomplicated; Z79.899 Other long term (current) drug therapy; Z79.82 Long term (current) use of aspirin
CPT/HCPCS: 36415; 80048; 80076; 80306; 82550; 84443; 85027; 93005; 99285; G0480

== ENCOUNTER → 2016-11-26 | Outpatient (REF) | LOC: M LAB 10:28 | PROVIDERS: ATTEND Nurse Practitioner Adult Health | DX: Z02.89 Encounter for other administrative examinations (principal) ==

== ENCOUNTER → 2016-12-01 | Outpatient (CLI) | payer MEDICAID, OTHER ==
[2016-12-01 09:21] LABS: BASO % 0.3 % (0.0-1.0); EOS # 0.2 K/mm3 (0.0-0.50); EOS % 3.8 % (0.0-3.0); LYMPH # 3.3 K/mm3 (1.5-4.5); LYMPH % 49.5 % (24.0-44.0); MEAN CORPUSCULAR HEMOGLOBIN 31.6 pg (27.0-33.0); MEAN CORPUSCULAR HGB CONC 34.7 g/dl (32.0-36.5); MEAN CORPUSCULAR VOLUME 90.9 fl (80.0-96.0); MONO # 0.4 K/mm3 (0.0-0.8); MONO % 5.4 % (0.0-5.0); NEUTROPHILS # 2.5 K/mm3 (1.8-7.7); NEUTROPHILS % 38.5 % (36.0-66.0); RED CELL DISTRIBUTION WIDTH 12.4 % (11.5-14.5); WHITE BLOOD COUNT 6.6 K/mm3 (4.0-10.0)
[2016-12-01 09:49] LABS: ALBUMIN 3.4 GM/DL (3.2-5.2); ALBUMIN/GLOBULIN RATIO 0.97 (1.00-1.93); ALKALINE PHOSPHATASE 64 U/L (45-117); ALT/SGPT 25 U/L (12-78); ANION GAP 5 MEQ/L (8-16); AST/SGOT 34 U/L (15-37); BILIRUBIN,TOTAL 0.2 MG/DL (0.2-1.0); BLOOD UREA NITROGEN 9 MG/DL (7-18); CALCIUM LEVEL 8.8 MG/DL (8.5-10.1); CARBON DIOXIDE LEVEL 30 MEQ/L (21-32); CHLORIDE LEVEL 107 MEQ/L (98-107); CHOLESTEROL LEVEL 117 MG/DL (<200); CREATININE FOR GFR 0.77 MG/DL (0.70-1.30); GLOMERULAR FILTRATION RATE > 60.0 (>60); GLUCOSE, FASTING 153 MG/DL (70-105); POTASSIUM SERUM 4.1 MEQ/L (3.5-5.1); SODIUM LEVEL 142 MEQ/L (136-145); TOTAL PROTEIN 6.9 GM/DL (6.4-8.2); TRIGLYCERIDES LEVEL 131 MG/DL (<150)
== END ==
LOC: M LAB 08:28
PROVIDERS: ATTEND Physician Assistant Medical
DX: E11.9 Type 2 diabetes mellitus without complications (principal)

== ENCOUNTER → 2016-12-02 | Outpatient (REF) ==
--- NOTE | 2016-12-02 15:31 | REP ---
Chest two views HISTORY: Positive PPD Comparison: None Linear density is present in the lingula consistent with scar. The right lung is clear. The heart is normal in size. The pulmonary vasculature is normal in appearance. The bony structure is intact. IMPRESSION: No acute disease. Signed by Erick Berger MD 12/02/2016 03:22 P
== END ==
LOC: M LAB 13:48
PROVIDERS: ATTEND Nurse Practitioner Adult Health
DX: Z02.89 Encounter for other administrative examinations (principal)

== ENCOUNTER 2017-01-02 12:42 | Emergency (ER) | payer OTHER, SELFPAY ==
[~2017-01-02] VITALS: Ht 170.2 cm; Wt 99.8 kg
[2017-01-02 12:42] VITALS: BP 139/84
[2017-01-02] MEDS ORDERED: INVO100T PO (12:48)
[2017-01-02] MEDS ORDERED: ISON300T4 (12:48)
[2017-01-02] MEDS ORDERED: BACIOIN23 OP (13:19)
== END 2017-01-02 13:34 | disposition home or self-care (01) ==
LOC: M ED 13:19
DX: H00.012 Hordeolum externum right lower eyelid (principal); E11.9 Type 2 diabetes mellitus without complications; I10 Essential (primary) hypertension; E78.5 Hyperlipidemia, unspecified; E03.9 Hypothyroidism, unspecified; K21.9 Gastro-esophageal reflux disease without esophagitis; F17.210 Nicotine dependence, cigarettes, uncomplicated; Z79.899 Other long term (current) drug therapy; Z79.84 Long term (current) use of oral hypoglycemic drugs; Z79.82 Long term (current) use of aspirin

== ENCOUNTER → 2017-01-18 | Outpatient (CLI) | payer OTHER ==
[~2017-01-18] MED LIST changes: +BACIOIN23 OP; +INVO100T PO; +ISON300T4
[2017-01-18 08:38] LABS: ALBUMIN 3.4 GM/DL (3.2-5.2); ALBUMIN/GLOBULIN RATIO 1.06 (1.00-1.93); ALKALINE PHOSPHATASE 48 U/L (45-117); ALT/SGPT 24 U/L (12-78); ANION GAP 8 MEQ/L (8-16); AST/SGOT 16 U/L (15-37); BILIRUBIN,TOTAL 0.2 MG/DL (0.2-1.0); BLOOD UREA NITROGEN 9 MG/DL (7-18); CALCIUM LEVEL 8.7 MG/DL (8.5-10.1); CARBON DIOXIDE LEVEL 28 MEQ/L (21-32); CHLORIDE LEVEL 103 MEQ/L (98-107); CHOLESTEROL LEVEL 130 MG/DL (<200); GLOMERULAR FILTRATION RATE > 60.0 (>60); GLUCOSE, FASTING 179 MG/DL (70-105); POTASSIUM SERUM 4.1 MEQ/L (3.5-5.1); SODIUM LEVEL 139 MEQ/L (136-145); TOTAL PROTEIN 6.6 GM/DL (6.4-8.2); TRIGLYCERIDES LEVEL 152 MG/DL (<150)
[2017-01-18 08:50] LABS: BASO % 0.3 % (0.0-1.0); EOS # 0.3 K/mm3 (0.0-0.50); EOS % 4.3 % (0.0-3.0); LARGE UNSTAINED CELL # 0.1 K/mm3 (0.0-0.4); LARGE UNSTAINED CELL % 1.6 % (0.0-4.0); LYMPH # 2.9 K/mm3 (1.5-4.5); LYMPH % 38.3 % (24.0-44.0); MEAN CORPUSCULAR HEMOGLOBIN 30.2 pg (27.0-33.0); MEAN CORPUSCULAR HGB CONC 33.2 g/dl (32.0-36.5); MEAN CORPUSCULAR VOLUME 90.9 fl (80.0-96.0); MONO # 0.4 K/mm3 (0.0-0.8); MONO % 5.9 % (0.0-5.0); NEUTROPHILS # 3.6 K/mm3 (1.8-7.7); NEUTROPHILS % 49.7 % (36.0-66.0); PLATELET COUNT, AUTOMATED 343 k/mm3 (150-450); RED CELL DISTRIBUTION WIDTH 12.6 % (11.5-14.5); WHITE BLOOD COUNT 7.3 K/mm3 (4.0-10.0)
== END ==
LOC: M LAB 07:35
PROVIDERS: ATTEND Physician Assistant Medical
DX: E11.9 Type 2 diabetes mellitus without complications (principal)

== ENCOUNTER → 2017-04-01 | Outpatient (CLI) | payer OTHER ==
[~2017-04-01] MED LIST changes: +ASPI1TAB PO; +BUPR150T3 PO; +DRIS50002 PO; +FOLI1TAB4 PO; +GLIP10TA6 PO; +INVO300T PO; +ISON300T4 PO; -LYRI100C10 PO; +MELO15TA4 PO; -METF1000 PO; +METF10004 PO; +NICO21PAT TD; +PREG100CA PO; +SYNT150T PO; +TRAM50TA2 PO; +TRAZO50TA PO; +TRUL10IN SC; +VITA50TA43 PO; +VITMTA PO
[2017-04-01 10:15] LABS: BASO # 0.1 K/mm3 (0.0-0.2); BASO % 1.3 % (0.0-1.0); EOS # 0.2 K/mm3 (0.0-0.50); EOS % 3.8 % (0.0-3.0); LYMPH # 2.6 K/mm3 (1.5-4.5); LYMPH % 39.5 % (24.0-44.0); MEAN CORPUSCULAR HEMOGLOBIN 29.6 pg (27.0-33.0); MEAN CORPUSCULAR HGB CONC 33.3 g/dl (32.0-36.5); MEAN CORPUSCULAR VOLUME 89.1 fl (80.0-96.0); MONO # 0.5 K/mm3 (0.0-0.8); MONO % 6.8 % (0.0-5.0); NEUTROPHILS % 46.2 % (36.0-66.0); RED CELL DISTRIBUTION WIDTH 12.1 % (11.5-14.5); WHITE BLOOD COUNT 6.6 K/mm3 (4.0-10.0)
[2017-04-01 10:42] LABS: ALBUMIN 3.7 GM/DL (3.2-5.2); ALBUMIN/GLOBULIN RATIO 1.09 (1.00-1.93); ALKALINE PHOSPHATASE 49 U/L (45-117); ALT/SGPT 21 U/L (12-78); ANION GAP 9 MEQ/L (8-16); AST/SGOT 18 U/L (15-37); BILIRUBIN,TOTAL 0.4 MG/DL (0.2-1.0); BLOOD UREA NITROGEN 8 MG/DL (7-18); CALCIUM LEVEL 9.2 MG/DL (8.5-10.1); CARBON DIOXIDE LEVEL 26 MEQ/L (21-32); CHLORIDE LEVEL 107 MEQ/L (98-107); CHOLESTEROL LEVEL 143 MG/DL (<200); CREATININE FOR GFR 0.85 MG/DL (0.70-1.30); GLOMERULAR FILTRATION RATE > 60.0 (>60); GLUCOSE, FASTING 108 MG/DL (70-105); POTASSIUM SERUM 4.1 MEQ/L (3.5-5.1); SODIUM LEVEL 142 MEQ/L (136-145); TOTAL PROTEIN 7.1 GM/DL (6.4-8.2); TRIGLYCERIDES LEVEL 86 MG/DL (<150)
== END ==
LOC: M LAB 09:34
PROVIDERS: ATTEND Physician Assistant Medical
DX: E11.9 Type 2 diabetes mellitus without complications (principal)

== ENCOUNTER 2017-05-05 09:16 | Inpatient (IN) | payer OTHER ==
[~2017-05-05] VITALS: Ht 172.7 cm; Wt 101.0 kg
[~2017-05-05 09:16] MED LIST changes: -ASPI1TAB PO; -BUPR150T3 PO; -DRIS50002 PO; -FOLI1TAB4 PO; -GLIP10TA6 PO; -INVO300T PO; -ISON300T4 PO; -MELO15TA4 PO; -NICO21PAT TD; -SYNT150T PO; -TRAM50TA2 PO; -TRAZO50TA PO; -TRUL10IN SC; -VITA50TA43 PO; -VITMTA PO
[2017-05-05 10:04] LABS: MEAN CORPUSCULAR HEMOGLOBIN 30.7 pg (27.0-33.0); MEAN CORPUSCULAR HGB CONC 35.2 g/dl (32.0-36.5); MEAN CORPUSCULAR VOLUME 87.2 fl (80.0-96.0); RED CELL DISTRIBUTION WIDTH 12.8 % (11.5-14.5); WHITE BLOOD COUNT 9.3 K/mm3 (4.0-10.0)
[2017-05-05 10:23] LABS: ALBUMIN 4.2 GM/DL (3.2-5.2); ALBUMIN/GLOBULIN RATIO 1.05 (1.00-1.93); ALKALINE PHOSPHATASE 56 U/L (45-117); ALT/SGPT 36 U/L (12-78); ANION GAP 8 MEQ/L (8-16); AST/SGOT 47 U/L (15-37); BILIRUBIN,DIRECT 0.1 MG/DL (0.0-0.2); BILIRUBIN,TOTAL 0.4 MG/DL (0.2-1.0); BLOOD UREA NITROGEN 10 MG/DL (7-18); CALCIUM LEVEL 9.1 MG/DL (8.5-10.1); CARBON DIOXIDE LEVEL 26 MEQ/L (21-32); CHLORIDE LEVEL 106 MEQ/L (98-107); CREATININE FOR GFR 0.87 MG/DL (0.70-1.30); GLOMERULAR FILTRATION RATE > 60.0 (>60); GLUCOSE, FASTING 145 MG/DL (70-105); POTASSIUM SERUM 3.9 MEQ/L (3.5-5.1); SODIUM LEVEL 140 MEQ/L (136-145); TOTAL PROTEIN 8.2 GM/DL (6.4-8.2)
[2017-05-05 11:49] LABS: METHADONE URINE NEGATIVE (NEGATIVE)
[2017-05-05] MEDS ORDERED: BUPR150T3 PO (14:46)
[2017-05-05] MEDS ORDERED: MELO15TA4 PO (14:46)
[2017-05-05] MEDS ORDERED: OMEP40CA2 PO (14:46)
[2017-05-05] MEDS ORDERED: DRIS50002 PO (14:46)
[2017-05-05] MEDS ORDERED: METF10004 PO (14:46)
[2017-05-05] MEDS ORDERED: LISI-542 PO (14:46)
[2017-05-05] MEDS ORDERED: TRAM50TA2 PO (14:46)
[2017-05-05] MEDS ORDERED: SYNT150T PO (14:46)
[2017-05-05] MEDS ORDERED: SIMV20TA2 PO (14:46)
[2017-05-05] MEDS ORDERED: TRUL10IN SC (14:46)
[2017-05-05] MEDS ORDERED: ISON300T4 PO (14:46)
[2017-05-05] MEDS ORDERED: ASPI1TAB PO (14:46)
[2017-05-05] MEDS ORDERED: GLIP10TA6 PO (14:46)
[2017-05-05] MEDS ORDERED: VITA50TA43 PO (14:46)
[2017-05-05] MEDS ORDERED: INVO300T PO (14:46)
[2017-05-05 15:45] VITALS: BP 145/95
[2017-05-05] MEDS ORDERED: LORazepam 2 MG TAB PO PRN (16:30)
[2017-05-05] MEDS ORDERED: MOM 30ML SUSPENSION UDC PO PRN (16:30)
[2017-05-05] MEDS ORDERED: MAALOX 30 ML SUSP *UDC PO PRN (16:30)
[2017-05-05] MEDS ORDERED: ACETAMINOPHEN TAB 650MG DOSE (2X325MG) PO PRN (16:30)
[2017-05-05] MEDS ORDERED: traZODone 50 MG TAB PO PRN (16:30)
[2017-05-05] MEDS ORDERED: THIAMINE 100 MG TAB PO ONE (16:45)
[2017-05-05] MEDS: glipiZIDE 10 MG TAB PO SCH (18:36)
[2017-05-05] MEDS: SIMVASTATIN 20 MG TAB PO SCH (21:31)
[2017-05-06] MEDS: LEVOTHYROXINE 150MCG TABLET (0.15MG) PO SCH (06:05)
[2017-05-06 06:22] VITALS: BP 147/81
[2017-05-06 06:29] VITALS: BP 140/98
[2017-05-06 06:32] VITALS: BP 147/81
[2017-05-06] MEDS: glipiZIDE 10 MG TAB PO SCH ×2 (06:42→17:06)
[2017-05-06] MEDS: NICOTINE 21MG/24HR 1 EA TRANSDERMAL TD SCH (08:58)
[2017-05-06] MEDS: buPROPion **XL** TABLET 150MG (WELLBUTRIN XL) PO SCH (09:03)
[2017-05-06] MEDS: LISINOPRIL 5 MG TAB PO SCH (09:03)
[2017-05-06] MEDS: ASPIRIN 81 MG ENTERIC TAB PO SCH (09:04)
[2017-05-06] MEDS: metFORMIN (GLUCOPHAGE) 1000 MG TABLET PO SCH (09:04)
[2017-05-06] MEDS: FOLIC ACID 1 MG TAB PO SCH (09:04)
[2017-05-06] MEDS: THIAMINE 100 MG TAB PO SCH ×2 (09:04→20:45)
[2017-05-06] MEDS: MULTIVITAMINS/MINERALS THERAP 1 TAB PO SCH (09:04)
[2017-05-06] MEDS: OMEPRAZOLE 20 MG CAP PO SCH (09:04)
[2017-05-06] MEDS: ISONIAZID 300 MG TAB PO SCH (09:04)
[2017-05-06] MEDS: PYRIDOXINE 50 MG TAB PO SCH (09:04)
[2017-05-06] MEDS: MELOXICAM (MOBIC) 7.5 MG TAB PO SCH (09:04)
--- NOTE | 2017-05-06 11:31 | HPEPDOC ---
[facility] Medical History & Physical Date of Admission May 06, 2017 History and Physical PCP: Lian Malloy NP ATTENDING: Dr. Kavin Pulliam HPI: 41 yoM admitted to [facility] for unspecified depressive disorder, being medically examined today. No acute medical complaints today. Denies any fevers, chills, weakness, fatigue, JOHNSON, CP, SOB, cough, palpitations, abdominal pain, N/V /D or changes in bowel or bladder habits. PMHx: NIDDM Hypertension Hyperlipidemia Hypothyroid Chronic bilateral knee pain. Previously seen by pain management. Abnormal PPD, with normal chest x-ray 2 currently on isoniazid 9 months as per PCP. GERD Depression Anxiety PSHX: Bilateral knee replacement ACL repair SOCHX: Resides in: [facility] Marital Status: Kids: 3 Employment: Unemployed Tobacco use: One half pack per day ETOH: [facility] was sober for 7-8 months then has been drinking since Tuesday 6-7 drinks per day Illicit Drugs: Cocaine. [facility] had not been using for 7 months then relapsed on Tuesday. IV Drug Use: Denies Tattoos done unprofessionally: Denies FAMHX: Mother: Alive, diabetes, hypertension Father: Alive, hypertension Siblings: Alive, diabetes Children: Alive, well Unexpected deaths due to medical reasons: None. ROS: As noted in HPI, otherwise 11pt ROS of systems reviewed and unremarkable. PE: GEN: 41 yo M, appears stated age. Well-nourished, well developed. No acute distress. Alert and oriented x 3. Pleasant, interactive. HEENT: Normocephalic, atraumatic. Pupils are equal, round, and reactive to light. Extraocular movements are intact. No nystagmus appreciated. Sclera are nonicteric. Conjunctiva without injection. Nose midline. Nasal turbinates without bogginess. EACs both patent BL. TMs both visualized and douglas with good cone of light, no bulging or erythema. No facial asymmetry. Moist mucous membranes. Dentition fair. Pharynx pink and moist, no cobblestoning. Neck supple , trachea midline. No lymphadenopathy or thyromegaly appreciated. CHEST: Regular rate and rhythm, +S1, +S2 LUNGS: Clear to auscultation bilaterally. No wheezes, rales, or rhonchi. Breathing appears symmetric and easy. Patient is speaking in full sentences. No accessory muscle use. ABD: Round, soft, non-tender, non-distended. +Bowel sounds throughout. No rebound or guarding. No costovertebral angle tenderness. EXT: Pulses 2+ bilaterally dorsalis pedis and radial. No lower extremity edema appreciated. SKIN: Barnum, dry, warm. Capillary refill <2sec. No rashes. NEURO: Alert and oriented x 3. Cranial nerves III-XII are intact. No focal deficits appreciated. EKG: Pending Chest x-ray 12/02/16 No acute disease A&P: 41 yoM admitted to [facility] for unspecified depressive disorder 1. Psych. Plan per Psychiatry. Obtain baseline EKG to assure the safety of psychiatric medications as they can prolong the QT interval. 2. Nicotine dependence. Patch available. 3. NIDDM. Continue Trulicity from home, injected weekly on Tuesday. Continue Invokana 300 mg by mouth twice a day. Patient has orders to use his home medications. Continue metformin 1000 g by mouth twice a day. Continue Glipizide 10 mg by mouth twice a day. Consistent carbohydrate diet. Fingerstick blood sugar twice a day. Continue aspirin 81 mg daily. hemoglobin A1c is noted to be 7.98/. 4. Follow up. With PCP on discharge. 5. Substance use. Withdrawal per psychiatry. Continue with MVI, Thiamine, and Folic Acid supplementation. 6. Hypertension. Continue lisinopril 5 mg daily. 7. Dyslipidemia. Continue Zocor 20 mg daily. LDL is noted to be 89 03/31. 8. Hypothyroid. Continue levothyroxine 150 g by mouth daily. TSH is noted within normal limits. 9. Chronic pain. Continue meloxicam 15 mg daily. Tylenol 650 mg by mouth every 6 hours as needed. 10. History of abnormal PPD. Chest x-ray with no active disease 11/29. Continue isoniazid 300 mg daily as prescribed by his PCP 9 months. Continue outpatient follow-up with PCP. 12. GERD. Continue Prilosec 40 mg daily. 13. Vitamin D deficiency. Continue vitamin D supplements. Vitamin D level is noted to be 72 03/31. 14. Staff member Yaron present throughout exam. Vital Signs Vital Signs Date Time Temp Pulse Resp B/P (MAP) Pulse Ox O2 Delivery O2 Flow Rate FiO2 05/06/17 09:03 130/60 05/06/17 06:32 96.6 90 20 05/05/17 15:45 96 Room Air Laboratory Data Labs 24H Laboratory Tests 2 05/06/17 06:08: Bedside Glucose (Misc Panel) 137H Home Medications Scheduled (Trulicity) 0.75 Mg/0.5 Ml Inj, 0.75 MG SC QWEEK TUESDAY Aspirin (Aspirin 81) 81 Mg Tab, 81 MG PO DAILY Bupropion Hcl (Bupropion HCl Xl) 150 Mg Tab, 150 MG PO DAILY Canagliflozin (Invokana) 300 Mg Tab, 300 MG PO DAILY Glipizide (Glipizide) 10 Mg Tab, 10 MG PO BID Isoniazid (Isoniazid) 300 Mg Tab, 300 MG PO DAILY Levothyroxine Sodium (Synthroid) 150 Mcg Tab, 150 MCG PO DAILY Lisinopril (Lisinopril) 5 Mg Tab, 5 MG PO DAILY Meloxicam (Meloxicam) 15 Mg Tab, 15 MG PO DAILY Metformin Hydrochloride (Metformin HCl) 1,000 Mg Tab, 1,000 MG PO DAILY Omeprazole (Omeprazole) 40 Mg Cap, 40 MG PO DAILY Pyridoxine HCl (Vitamin B 6) 50 Mg Tab, 50 MG PO DAILY Simvastatin (Simvastatin) 20 Mg Tab, 20 MG PO DAILY Vitamin D (Drisdol) 50,000 Unit Cap, 50,000 UNIT PO QWEEK TUESDAY Scheduled PRN Tramadol HCl (Tramadol HCl) 50 Mg Tab, 50 MG PO TID PRN for PAIN Allergies Coded Allergies: No Known Allergies (Unverified , 04/09/16) Sugey Fishman May 06, 2017 11:31
--- NOTE | 2017-05-06 11:40 | ECGEPIP ---
Stationary ECG Study [facility] - ED Test Date: 2017-05-05 Pat Name: KIARRA ODOM Department: Room: - Gender: M Change Management Facilitator: kaden : 1975 Requested By: JAYE MONROE Order Number: [id number] Reading MD: Mylene Cantu Measurements Intervals [place] Rate: 95 P: 43 HI: 152 QRS: 31 QRSD: 85 T: 11 QT: 347 QTc: 438 Interpretive Statements SINUS RHYTHM SEPTAL MYOCARDIAL INFARCTION, PROBABLY OLD NSTTW ABNORMALITY Electronically Signed On 05-06-2017 11:40:08 EDT by Mylene Cantu
[2017-05-06 12:03] VITALS: BP 134/71
[2017-05-06 12:05] VITALS: BP 134/71
[2017-05-06 18:25] VITALS: BP 133/73
[2017-05-06] MEDS: SIMVASTATIN 20 MG TAB PO SCH (20:45)
--- NOTE | 2017-05-06 22:21 | MHHPEPDOC ---
[facility] History & Physical History and Physical DATE OF ADMISSION: May 05, 2017 at 14:16 LEGAL STATUS AT ADMISSION: 9.39 CHIEF COMPLAINT: 41-year-old -[place] male with history of substance abuse was brought to the emergency room after a week of alcohol and cocaine intake. HISTORY OF THE PRESENT ILLNESS: Patient is a 41-year-old male, who 41-year-old -[place] male with history of alcohol, cocaine and crack abuse. Patient reports his has been unfaithful to him, he was able to retrieve messages from another man in her cell phone, she denied being unfaithful but it was quite evident for him. He left the house, started drinking alcohol and after drinking alcohol he started using cocaine and crack. He remained sitting in his car in front of her house watching her. He knows he can go back to her, he knows he has to leave the area, get another job in another place. He currently has a job but he says his stepson works in the same place and he knows that he wanted be possible for both of them to share the same workplace because that will lead to disagreements and arguments. He admits that he cares for his 3 stepchildren, especially for the youngest one, a 10-year-old girl. He says he has had a relationship with this woman for 7 years and he knows she has been unfaithful before. He has been through this before and his way of coping has been with alcohol. He claims he was in rehabilitation and was clean for 7 months. He regrets the relapse, says he is going to talk to his special investigator who doesn 't live in the area, but he knows his special investigator will be able to help him. He currently denies suicidal ideation, homicidal ideation and psychosis. PSYCHIATRIC REVIEW OF SYSTEMS: Affective: Upset, hopeless, helpless, confused. Anxiety: High anxiety levels. Trauma: Denies. Psychosis: Denies. Personally: Needs further assessment, possible cluster B personality disorder. PAST PSYCHIATRIC HISTORY: Prior Psychiatric Disorder: Patient says he doesn't remember what medications he has taken in the past except for Wellbutrin. He admits he has a problem with alcohol and drugs Outpatient Treatment: He has been to rehabilitation. Suicidal/Self injurious: He denies previous suicide attempts and denies current suicidal ideation. Psychotropic Medication History: Denies. ALLERGIES: Please see below. FAMILY PSYCHIATRIC HISTORY: Denies family psychiatric history. SOCIAL HISTORY: Early Relations/development: He says he never knew his biological father, he only knew his stepfather who was his only father, I will Who treated him well. He is still in touch with him, in touch with his mother with whom he has a good relationship. Sibling order: He has 2 other siblings but he doesn't get in touch with them very often. Paternal relationships: He talks once in a while to his stepfather and his mother living in [place]. Education: . Occupational: He had a job until last week, he thinks he might have gotten fired because he didn't go to work due to his alcohol consumption Legal: He says he has been arrested before for gutierrez larceny. Martial: , used to live with and 3 step kids, has 3 children of his own but they don't live with him. Economic: Denies current financial stressors but he fears losing his job. Supports: His parents and the special investigator of his yarsanism. Abuse/trauma: Denies. SUBSTANCE ABUSE HISTORY: History of alcohol, cocaine and crack. PAST MEDICAL/SURGICAL HISTORY: 1. Bilateral knee replacement. 2. Hypertension. 3. Diabetes VITAL SIGNS: See below MENTAL STATUS EXAMINATION: General appearance: Patient is a 41-year old male, who is alert,, cooperative, with good eye contact, fair hygiene. Speech: Normal, coherent. Thought processes: Intact. Thought content: Goal-directed, rational. Abstract reasoning and computation: Fair. Description of associations: Good. Description of abnormal or psychotic thoughts: Denies suicidal and homicidal ideation, denies thought delusions and denies auditory and visual hallucinations. Judgment: Poor. Insight: Poor. Orientation: Oriented 3. Recent and remote memory: Intact. Attention span and concentration: Good. Fund of knowledge: Fair. Mood: "Depressed." Affect: Sad, depressed, anxious. DIAGNOSES: 1. Adjustment disorder with mixed emotions. 2. Alcohol use disorder. 3. Cocaine use disorder. ASSESSMENT: Patient is currently not in danger to self or others, not homicidal , not suicidal. He is going through a difficult situation, he still doesn't know if his going to remain in [place] or if he is going to hell out of the area. He is very upset about his marital problems which affect his work and his level of functioning. Patient says that he was in rehabilitation before and has been clean for 7 months but he has relapsed. He will benefit from long-term treatment for substance abuse. PROBLEM LIST: 1. Depression. 2. And anxiety 3. Substance abuse. 4. Ineffective coping 5. Poor impulse control INITIAL TREATMENT PLAN: 1. Patient was admitted on a 9.39 2. Complete history was obtained. 3. With patients permission, family will be contacted and database will be expanded. 4. Patients medication regimen will be reviewed and changed accordingly. 5. Patient will be provided with protected environment. 6. Patient will be treated with individual, group, and milieu therapies. 7. Patient will receive supportive psych-education. 8. Discharge planning will commence immediately. 9. Outpatient follow-up treatment will be strongly recommended. 10. The initial treatment plan will focus initially on: * Depression. * Risk for suicide. * Substance abuse. ESTIMATED LENGTH OF STAY: - DAYS. TIME SPENT COUNSELING AND COORDINATING INITIAL CARE: minutes. Laboratory Data 24H Labs Laboratory Tests 2 05/06/17 06:08: Bedside Glucose (Misc Panel) 137H 05/06/17 17:04: Bedside Glucose (Misc Panel) 140H FSBS Laboratory Tests Test 05/06/17 06:08 05/06/17 17:04 Range/Units Bedside Glucose (Misc Panel) 137 140 70-105 MG/DL Medications Scheduled (Trulicity) 0.75 Mg/0.5 Ml Inj, 0.75 MG SC QWEEK, (Reported) TUESDAY Aspirin (Aspirin 81) 81 Mg Tab, 81 MG PO DAILY, (Reported) Bupropion Hcl (Bupropion HCl Xl) 150 Mg Tab, 150 MG PO DAILY, (Reported) Canagliflozin (Invokana) 300 Mg Tab, 300 MG PO DAILY, (Reported) Glipizide (Glipizide) 10 Mg Tab, 10 MG PO BID, (Reported) Isoniazid (Isoniazid) 300 Mg Tab, 300 MG PO DAILY, (Reported) Levothyroxine Sodium (Synthroid) 150 Mcg Tab, 150 MCG PO DAILY, (Reported) Lisinopril (Lisinopril) 5 Mg Tab, 5 MG PO DAILY, (Reported) Meloxicam (Meloxicam) 15 Mg Tab, 15 MG PO DAILY, (Reported) Metformin Hydrochloride (Metformin HCl) 1,000 Mg Tab, 1,000 MG PO DAILY, ( Reported) Omeprazole (Omeprazole) 40 Mg Cap, 40 MG PO DAILY, (Reported) Pyridoxine HCl (Vitamin B 6) 50 Mg Tab, 50 MG PO DAILY, (Reported) Simvastatin (Simvastatin) 20 Mg Tab, 20 MG PO DAILY, (Reported) Vitamin D (Drisdol) 50,000 Unit Cap, 50,000 UNIT PO QWEEK, (Reported) TUESDAY Scheduled PRN Tramadol HCl (Tramadol HCl) 50 Mg Tab, 50 MG PO TID PRN for PAIN, (Reported) Allergies Coded Allergies: No Known Allergies (Unverified , 04/09/16) MEGAN RUSS MD May 06, 2017 22:21
[2017-05-07] MEDS: LEVOTHYROXINE 150MCG TABLET (0.15MG) PO SCH (06:13)
[2017-05-07] MEDS: glipiZIDE 10 MG TAB PO SCH ×2 (06:33→17:06)
[2017-05-07 07:11] VITALS: BP 116/58
[2017-05-07] MEDS: MULTIVITAMINS/MINERALS THERAP 1 TAB PO SCH (08:57)
[2017-05-07] MEDS: PYRIDOXINE 50 MG TAB PO SCH (08:57)
[2017-05-07] MEDS: MELOXICAM (MOBIC) 7.5 MG TAB PO SCH (08:57)
[2017-05-07] MEDS: FOLIC ACID 1 MG TAB PO SCH (08:57)
[2017-05-07] MEDS: THIAMINE 100 MG TAB PO SCH ×2 (08:57→20:31)
[2017-05-07] MEDS: buPROPion **XL** TABLET 150MG (WELLBUTRIN XL) PO SCH (08:57)
[2017-05-07] MEDS: metFORMIN (GLUCOPHAGE) 1000 MG TABLET PO SCH (08:57)
[2017-05-07] MEDS: ISONIAZID 300 MG TAB PO SCH (08:57)
[2017-05-07] MEDS: OMEPRAZOLE 20 MG CAP PO SCH (08:57)
[2017-05-07] MEDS: ASPIRIN 81 MG ENTERIC TAB PO SCH (08:57)
[2017-05-07] MEDS: LISINOPRIL 5 MG TAB PO SCH (08:59)
[2017-05-07] MEDS: NICOTINE 21MG/24HR 1 EA TRANSDERMAL TD SCH (09:00)
[2017-05-07 11:56] VITALS: BP 119/69
[2017-05-07 15:22] VITALS: BP 119/69
--- NOTE | 2017-05-07 16:02 | IPN ---
DATE: 05/07/2017 SUBJECTIVE: Maryam Rhodes is a 41-year-old male. He states that he was drinking and drugging and now feels like giving up. He states he messed up his marriage. His is going to leave him. He states he had cleaned out his bank account to get high on junk. He was using cocaine, crack, beer and liquor. He states he used to work at [employer] and now working at [employer], and is unsure if that job is going to be there. He states he does not want to go back out in the street and may want to go to rehabilitation. He previously was in rehabilitation and had been "clean," but that he "slipped." MENTAL STATUS EXAMINATION: Mood is low. Affect is sad. Speech is normal. No disturbance of thought process. No loose associations. No abnormal thoughts. Judgment and insight are fair. Fully oriented. Recent and remote memory intact. No difficulty with attention and concentration. Full fund of knowledge. Mood is low. Affect is sad. No change in treatment at this time. DIAGNOSES: 1. Depressive reaction. 2. Substance dependence.
[2017-05-07 18:18] VITALS: BP 122/60
[2017-05-07] MEDS: SIMVASTATIN 20 MG TAB PO SCH (20:31)
[2017-05-07 21:53] VITALS: BP 122/60
[2017-05-08] MEDS: LEVOTHYROXINE 150MCG TABLET (0.15MG) PO SCH (06:04)
[2017-05-08 06:24] VITALS: BP 132/81
[2017-05-08] MEDS: glipiZIDE 10 MG TAB PO SCH ×2 (06:30→16:59)
[2017-05-08] MEDS: PYRIDOXINE 50 MG TAB PO SCH (08:38)
[2017-05-08] MEDS: MULTIVITAMINS/MINERALS THERAP 1 TAB PO SCH (08:38)
[2017-05-08] MEDS: LISINOPRIL 5 MG TAB PO SCH (08:38)
[2017-05-08] MEDS: buPROPion **XL** TABLET 150MG (WELLBUTRIN XL) PO SCH (08:38)
[2017-05-08] MEDS: ASPIRIN 81 MG ENTERIC TAB PO SCH (08:38)
[2017-05-08] MEDS: THIAMINE 100 MG TAB PO SCH (08:38)
[2017-05-08] MEDS: MELOXICAM (MOBIC) 7.5 MG TAB PO SCH (08:38)
[2017-05-08] MEDS: FOLIC ACID 1 MG TAB PO SCH (08:38)
[2017-05-08] MEDS: metFORMIN (GLUCOPHAGE) 1000 MG TABLET PO SCH (08:38)
[2017-05-08] MEDS: ISONIAZID 300 MG TAB PO SCH (08:38)
[2017-05-08] MEDS: OMEPRAZOLE 20 MG CAP PO SCH (08:38)
[2017-05-08] MEDS: NICOTINE 21MG/24HR 1 EA TRANSDERMAL TD SCH (08:40)
[2017-05-08] MEDS ORDERED: VITAMIN D 50,000 UNITS CAPSULE (ERGOCALCIFEROL 1.25MG) PO SCH (09:00)
[2017-05-08] MEDS ORDERED: CANAGLIFLOZIN PO SCH (09:00)
[2017-05-08 12:06] VITALS: BP 126/77
--- NOTE | 2017-05-08 13:22 | MHIPN ---
DATE: 05/08/2017 Mr. Rhodes is significantly downcast due to his relapse and all the losses that accompany it. He is presently on Wellbutrin, which he was on previously. He has been in inpatient rehabilitation one time. MENTAL STATUS EXAMINATION: Speech is slow. Thought processes is normal. No loose associations. No abnormal or psychotic thoughts. Judgment and insight are fair. He is fully oriented. Recent and remote memory intact. No disturbance of attention and concentration. No disturbance of language. Full fund of knowledge. Mood is slow. Affect is sad. PLAN: Continue on medication but most likely will be needing to go to rehabilitation. He has suffered marital and financial loss due to his relapse.
[2017-05-08 18:23] VITALS: BP 125/76
[2017-05-08] MEDS: SIMVASTATIN 20 MG TAB PO SCH (20:17)
[2017-05-08 21:00] VITALS: BP 126/80
[2017-05-09] MEDS: LEVOTHYROXINE 150MCG TABLET (0.15MG) PO SCH (06:16)
[2017-05-09] MEDS: glipiZIDE 10 MG TAB PO SCH ×2 (06:16→16:42)
[2017-05-09 06:41] VITALS: BP 141/72
[2017-05-09] MEDS: ASPIRIN 81 MG ENTERIC TAB PO SCH (08:53)
[2017-05-09] MEDS: FOLIC ACID 1 MG TAB PO SCH (08:53)
[2017-05-09] MEDS: OMEPRAZOLE 20 MG CAP PO SCH (08:53)
[2017-05-09] MEDS: LISINOPRIL 5 MG TAB PO SCH (08:53)
[2017-05-09] MEDS: PYRIDOXINE 50 MG TAB PO SCH (08:53)
[2017-05-09] MEDS: buPROPion **XL** TABLET 150MG (WELLBUTRIN XL) PO SCH (08:53)
[2017-05-09] MEDS: MULTIVITAMINS/MINERALS THERAP 1 TAB PO SCH (08:53)
[2017-05-09] MEDS: MELOXICAM (MOBIC) 7.5 MG TAB PO SCH (08:53)
[2017-05-09] MEDS: ISONIAZID 300 MG TAB PO SCH (08:53)
[2017-05-09] MEDS: metFORMIN (GLUCOPHAGE) 1000 MG TABLET PO SCH (08:53)
[2017-05-09] MEDS: NICOTINE 21MG/24HR 1 EA TRANSDERMAL TD SCH (09:00)
[2017-05-09 12:25] VITALS: BP 123/78
--- NOTE | 2017-05-09 16:38 | MHIPNPDOC ---
[facility] Progress Note Progress Note DATE OF SERVICE: 05/09/17 HISTORY: Patient is a 41-year-old male, who 41-year-old -Haitian male with history of alcohol, cocaine and crack abuse. Patient reports his has been unfaithful to him, he was able to retrieve messages from another man in her cell phone, she denied being unfaithful but it was quite evident for him. He left the house, started drinking alcohol and after drinking alcohol he started using cocaine and crack. He remained sitting in his car in front of her house watching her. He knows he can go back to her, he knows he has to leave the area, get another job in another place. He currently has a job but he says his stepson works in the same place and he knows that he wanted be possible for both of them to share the same workplace because that will lead to disagreements and arguments. He admits that he cares for his 3 stepchildren, especially for the youngest one, a 10-year-old girl. He says he has had a relationship with this woman for 7 years and he knows she has been unfaithful before. He has been through this before and his way of coping has been with alcohol. He claims he was in rehabilitation and was clean for 7 months. He regrets the relapse, says he is going to talk to his optician apprentice dispensing who doesn't live in the area, but he knows his optician apprentice dispensing will be able to help him. He currently denies suicidal ideation, homicidal ideation and psychosis Today, Mr. Rhodes reported he wants to go for rehabilitation treatment and he also said that his optician apprentice dispensing might be willing to help him with room and board, while he finds out what to do with his life. Currently he is homeless, because his continues to live at their home, he is not sure if he wants to return to work at the same place because his stepson works in there too, and he doesn' t want to have arguments with him. He thinks his might have gone to his workplace to say bad things about him and he worries about having to go back, talk to his boss and his coworkers about this situation. It would be embarrassing for him. After he spoke with his optician apprentice dispensing, he decided he will be leaving tomorrow, he found the support he needs at this time with him ( his optician apprentice dispensing) VITAL SIGNS: See below. NEW TEST RESULTS: N/A CURRENT MEDICATIONS: See below. MENTAL STATUS EXAMINATION: Patient is a 41-year old male, who is alert, oriented, cooperative, anxious, with fair eye contact, fair hygiene and grooming. Speech: Is goal-directed, coherent. Language skills are fair. Thought processes including: Intact, rational, coherent. Thought content: focused on his current marital problems, work related issues and home related issues. He worries about not having a place to live. Abstract reasoning, and computation: Not assessed at this time Description of associations: Good Description of abnormal or psychotic thoughts: Denies SI/HI, denies thought delusions, denies auditory and visual hallucinations Judgment: Improving Insight: Improving. Orientation: Oriented 3. Recent and remote memory: Intact. Attention span and concentration: Fair. Language: Normal. Fund of knowledge: Not assessed at this time. Mood: Anxious. Affect: And slightly constricted, congruent to mood. DIAGNOSES: 1. Adjustment disorder with depressed/anxious mood 2. Alcohol use disorder 3. Cocaine use disorder ASSESSMENT: Patient is not in danger to self or others, he is not suicidal or homicidal, he is not actively psychotic, he is insightful about his alcohol and substance abuse problem and wants to get help, which shows that his judgment is improving. Patient wants to be discharged tomorrow to his optician apprentice dispensing who will help him through this ordeal. Patient is safe to be discharged tomorrow. MANAGEMENT PLAN: Patient will be discharged tomorrow, we'll continue on the same medications, and will attend a rehabilitation treatment program. TIME SPENT: 30 minutes. Vital Signs Vital Signs Date Time Temp Pulse Resp B/P (MAP) Pulse Ox O2 Delivery O2 Flow Rate FiO2 05/09/17 12:25 97.6 95 16 123/78 (93) 05/09/17 06:41 Room Air 05/05/17 15:45 96 Laboratory Data 24H Labs Laboratory Tests 2 05/08/17 16:58: Bedside Glucose (Misc Panel) 122H 05/09/17 06:22: Bedside Glucose (Misc Panel) 183H Current Medications Current Medications Acetaminophen (Tylenol Tab) 650 mg Q6HP PRN PO HEADACHE or DISCOMFORT; Start at 16:30; Stop 06/04/17 at 16:29 Al Hydrox/Mg Hydrox/Simethicone (Mylanta) 30 ml Q4HP PRN PO HEARTBURN/ INDIGESTION; Start 05/05/17 at 16:30; Stop 06/04/17 at 16:29 Aspirin (Ecotrin) 81 mg DAILY PO Last administered on 05/09/17 08:53; Start at 09:00; Stop 06/05/17 at 08:59 Bupropion HCl (Wellbutrin Xl) 150 mg DAILY PO Last administered on 05/09/17 08 :53; Start 05/06/17 at 09:00; Stop 06/05/17 at 08:59 Folic Acid (Folic Acid) 1 mg DAILY PO Last administered on 05/09/17 08:53; Start 05/06/17 at 09:00; Stop 06/05/17 at 08:59 Glipizide (Glucotrol) 10 mg BID@0730,1730 PO Last administered on 05/09/17 06: 16; Start 05/05/17 at 17:30; Stop 06/04/17 at 17:29 Home Med (Med Rec Complete!) ASDIRECTED XX ; Start 05/05/17 at 15:00; Stop at 15:00; Status DC Isoniazid (Isoniazid) 300 mg DAILY PO Last administered on 05/09/17 08:53; Start 05/06/17 at 09:00; Stop 06/05/17 at 08:59 Levothyroxine Sodium (Synthroid) 150 mcg DAILY@06 PO Last administered on 06:16; Start 05/06/17 at 06:00; Stop 06/05/17 at 05:59 Lisinopril (Prinivil) 5 mg DAILY PO Last administered on 05/09/17 08:53; Start 05/06/17 at 09:00; Stop 06/05/17 at 08:59 Lorazepam (Ativan) 2 mg ASDIRECTED PRN PO SEE PROTOCOL; Start 05/05/17 at 16:30 ; Stop 05/12/17 at 16:29 Magnesium Hydroxide (Milk Of Magnesia) 30 ml DAILYPRN PRN PO CONSTIPATION; Start 05/05/17 at 16:30; Stop 06/04/17 at 16:29 Meloxicam (Mobic) 15 mg DAILY PO Last administered on 05/09/17 08:53; Start at 09:00; Stop 06/05/17 at 08:59 Metformin HCl (Glucophage) 1,000 mg DAILY@08 PO Last administered on 05/09/17 08:53; Start 05/06/17 at 08:00; Stop 06/05/17 at 07:59 Miscellaneous (Unresolved Patient Own Med Order) SEE LABEL COMMENTS UNRESOLVED XX ; Start 05/05/17 at 00:01; Stop 06/04/17 at 00:00 Multivitamins (Theragram-M) 1 tab DAILY PO Last administered on 05/09/17 08:53 ; Start 05/06/17 at 09:00; Stop 06/05/17 at 08:59 Nicotine (Nicoderm Cq 21mg) 1 patch DAILY TD ; Start 05/06/17 at 09:00; Stop at 08:59 Omeprazole (PriLOSEC) 40 mg DAILY PO Last administered on 05/09/17 08:53; Start 05/06/17 at 09:00; Stop 06/05/17 at 08:59 Patient Own Medication (Patient'S Own Med) Canagliflozin (Invokana) 300mg tab... DAILY PO ; Start 05/08/17 at 09:00; Stop 06/07/17 at 08:59; Status Future Hold Patient Own Medication (Patient'S Own Med) Trulicity 0.75/0.5 ml,... Fr@0900 SC ; Start 05/13/17 at 09:00; Stop 06/12/17 at 08:59; Status Future Hold Pyridoxine HCl (Vitamin B6) 50 mg DAILY PO Last administered on 05/09/17 08:53 ; Start 05/06/17 at 09:00; Stop 06/05/17 at 08:59 Simvastatin (Zocor) 20 mg QHS PO Last administered on 05/08/17 20:17; Start at 21:00; Stop 06/04/17 at 20:59 Thiamine HCl (Thiamine HCl) 100 mg BID PO Last administered on 05/08/17 08:38 ; Start 05/06/17 at 09:00; Stop 05/08/17 at 09:01; Status DC Trazodone HCl (Desyrel) 50 mg QHSP PRN PO INSOMNIA Last administered on 20:45; Start 05/05/17 at 16:30; Stop 06/04/17 at 16:29 Vitamin D (Drisdol) 50,000 units Alvarado@09 PO Last administered on 05/08/17 08:38 ; Start 05/08/17 at 09:00; Stop 06/07/17 at 08:59 Allergies Coded Allergies: No Known Allergies (Unverified , 04/09/16) MEGAN RUSS MD May 09, 2017 16:38
[2017-05-09 18:00] VITALS: BP 117/65
[2017-05-09 21:00] VITALS: BP 124/76
[2017-05-09] MEDS ORDERED: FOLI1TAB4 PO (21:09)
[2017-05-09] MEDS ORDERED: VITMTA PO (21:09)
[2017-05-09] MEDS ORDERED: TRAZO50TA PO (21:09)
[2017-05-09] MEDS ORDERED: NICO21PAT TD (21:09)
[2017-05-09] MEDS: SIMVASTATIN 20 MG TAB PO SCH (21:47)
[2017-05-09 21:54] VITALS: BP 122/70
[2017-05-10] MEDS: LEVOTHYROXINE 150MCG TABLET (0.15MG) PO SCH (06:00)
[2017-05-10 06:23] VITALS: BP 140/80
[2017-05-10] MEDS: ASPIRIN 81 MG ENTERIC TAB PO SCH (08:54)
[2017-05-10] MEDS: metFORMIN (GLUCOPHAGE) 1000 MG TABLET PO SCH (08:54)
[2017-05-10] MEDS: MELOXICAM (MOBIC) 7.5 MG TAB PO SCH (08:54)
[2017-05-10] MEDS: FOLIC ACID 1 MG TAB PO SCH (08:55)
[2017-05-10] MEDS: buPROPion **XL** TABLET 150MG (WELLBUTRIN XL) PO SCH (08:55)
[2017-05-10] MEDS: OMEPRAZOLE 20 MG CAP PO SCH (08:55)
[2017-05-10] MEDS: ISONIAZID 300 MG TAB PO SCH (08:55)
[2017-05-10] MEDS: PYRIDOXINE 50 MG TAB PO SCH (08:55)
[2017-05-10] MEDS: glipiZIDE 10 MG TAB PO SCH (08:55)
[2017-05-10] MEDS: MULTIVITAMINS/MINERALS THERAP 1 TAB PO SCH (08:55)
[2017-05-10 08:57] VITALS: BP 155/85
[2017-05-10] MEDS: LISINOPRIL 5 MG TAB PO SCH (08:57)
[2017-05-10] MEDS: NICOTINE 21MG/24HR 1 EA TRANSDERMAL TD SCH (09:00)
--- NOTE | 2017-05-10 20:10 | MHDSPDOC ---
[facility] Discharge Summary Discharge Summary DATE OF ADMISSION: May 05, 2017 at 14:16 DATE OF DISCHARGE: May 10, 2017 at 12:15 DISCHARGE DIAGNOSES: 1. Adjustment disorder with depressed mood/anxious mood 2. Alcohol use disorder 3. Cocaine use disorder REASON FOR ADMISSION: CHIEF COMPLAINT: 41-year-old -Eritrean male with history of substance abuse was brought to the emergency room after a week of alcohol and cocaine intake. HISTORY OF THE PRESENT ILLNESS: Patient is a 41-year-old male, who 41-year-old -Eritrean male with history of alcohol, cocaine and crack abuse. Patient reports his has been unfaithful to him, he was able to retrieve messages from another man in her cell phone, she denied being unfaithful but it was quite evident for him. He left the house, started drinking alcohol and after drinking alcohol he started using cocaine and crack. He remained sitting in his car in front of her house watching her. He knows he can go back to her, he knows he has to leave the area, get another job in another place. He currently has a job but he says his stepson works in the same place and he knows that he wanted be possible for both of them to share the same workplace because that will lead to disagreements and arguments. He admits that he cares for his 3 stepchildren, especially for the youngest one, a 10-year-old girl. He says he has had a relationship with this woman for 7 years and he knows she has been unfaithful before. He has been through this before and his way of coping has been with alcohol. He claims he was in rehabilitation and was clean for 7 months. He regrets the relapse, says he is going to talk to his nursing clinical director who doesn 't live in the area, but he knows his nursing clinical director will be able to help him. He currently denies suicidal ideation, homicidal ideation and psychosis. CONSULTANTS INVOLVED: None TREATMENT AND PROGRESS ON THE UNIT : Patient had a good response to medications , he has attended groups, has been respectful to [facility] rules and regulations. He is a little less depressed but he is still anxious about his future. yesterday he received the visit of his nursing clinical director and this one offered him his support. patient plans to go live in [place], where he plans to work too. He says he can't go to the house because his has told him he is not welcome there and he certainly is sad about not being able to see his stepchildren, especially the youngest one, the 10 year old girl, that has been like his own child for him. he is motivated to continue treatment in a rehab center and he will continue this treatment at . Meanwhile he will go to [facility] because currently he is homeless but he is set to start his rehab program next Tuesday, May 15. HOSPITAL COURSE: As above. DISCHARGE ASSESSMENT: patient was not in danger to self or others, he was not suicidal, not homicidal and not psychotic. MENTAL STATUS EXAMINATION ON DISCHARGE: Patient is a 41-year old male, who is alert, oriented, cooperative, anxious, with fair eye contact, fair hygiene and grooming. Speech: Is goal-directed, coherent. Language skills are fair. Thought processes including: Intact, rational, coherent. Thought content: focused on his rehab treatment that is starting on May 15. Motivated for change. Abstract reasoning, and computation: Not assessed at this time Description of associations: Good Description of abnormal or psychotic thoughts: Denies SI/HI, denies thought delusions, denies auditory and visual hallucinations Judgment: Improving Insight: Improving. Orientation: Oriented 3. Recent and remote memory: Intact. Attention span and concentration: Fair. Language: Normal. Fund of knowledge: Not assessed at this time. Mood: Anxious/sad Affect: Sad/anxious MEDICATIONS ON DISCHARGE: Aspirin (Ecotrin) 81 mg DAILY PO for CAD Bupropion HCl (Wellbutrin Xl) 150 mg DAILY PO for depression Folic Acid (Folic Acid) 1 mg DAILY PO for alcohol withdrawal Glipizide (Glucotrol) 10 mg BID for diabetes Isoniazid (Isoniazid) 300 mg DAILY PO for TB prophylaxis Levothyroxine Sodium (Synthroid) 150 mcg DAILY for hypothyroidism Lisinopril (Prinivil) 5 mg DAILY PO for high blood pressure Meloxicam (Mobic) 15 mg DAILY PO for pain Metformin HCl (Glucophage) 1,000 mg DAILY for diabetes Multivitamins (Theragram-M) 1 tab DAILY PO for alcohol withdrawals Nicotine (Nicoderm Cq 21mg) 1 patch DAILY TD for smoke cessation Omeprazole (PriLOSEC) 40 mg DAILY PO for GI problems Pyridoxine HCl (Vitamin B6) 50 mg DAILY PO Simvastatin (Zocor) 20 mg QHS PO for high cholesterol and high triglycerides Thiamine HCl (Thiamine HCl) 100 mg BID PO Trazodone HCl (Desyrel) 50 mg QHSP PRN PO INSOMNIA Vitamin D (Drisdol) 50,000 units Alvarado@09 PO PLAN/FOLLOWUP ARRANGEMENTS: * Mental Health Appt 1 * Medical * Medical Follow Up [facility] * Established With This Provider Yes * Date May 18, 2017 * Time 10:15 * Address of Clinic or Practice [facility] * Follow Up Care Education Label * Mental Health Appt 3 * Mental Health [facility] * Established With This Provider Yes * Therapist Dr. Kaiser * Date May 27, 2017 * Time 09:00 * Address of Clinic or Practice [address] [place] [address] * * Mental Health [facility] * Established With This Provider No * Therapist Darian Espinoza * Date May 19, 2017 * Time 09:00 * Address of Clinic or Practice [address] [place] [address] * Follow Up Care Education Label * Chemical Dependency Appt1 * Chemical Dependency [facility] * Established With This Provider No * Therapist TANK Harris * Date May 12, 2017 * Time 13:00 * Address of Clinic or Practice [address] [place] [address] * Follow Up Care Education Label * medicaid transportation # * Additional information To utilize medicaid transportation - call [phone] between 48-72 hours in advance. They will bring you to/from any medical or psychiatric appointments. Follow Up Care Education Label * Chemical Dependency Appt2 * Chemical Dependency [facility] * Therapist Adriane Webb * * Additional information There is a bed available on May 16 at 10am. Please call daily to check in with Adriane as she may have a bed available sooner. Follow Up Care Education Label * Medical * Medical Follow Up [facility] * Established With This Provider Yes * Date May 18, 2017 * Time 10:15 * Address of Clinic or Practice [facility] * Follow Up Care Education Label * Mental Health Appt 3 * Mental Health [facility] * Established With This Provider Yes * Therapist Dr. Kaiser * Date May 27, 2017 * Time 09:00 * Address of Clinic or Practice [address] [place] [address] * The amount of time spent in the coordination of care for this patient was approximately 35 minutes. Vital Signs/I&Os Vital Signs Date Time Temp Pulse Resp B/P (MAP) Pulse Ox O2 Delivery O2 Flow Rate FiO2 05/10/17 08:57 155/85 05/10/17 06:23 97.4 74 20 05/09/17 06:41 Room Air 05/05/17 15:45 96 Laboratory Data Labs 24H Laboratory Tests 2 05/10/17 06:02: Bedside Glucose (Misc Panel) 163H Medications Scheduled (Trulicity) 0.75 Mg/0.5 Ml Inj, 0.75 MG SC QWEEK, (Reported) TUESDAY Aspirin (Aspirin 81) 81 Mg Tab, 81 MG PO DAILY, #30 (Reported) Bupropion Hcl (Bupropion HCl Xl) 150 Mg Tab, 150 MG PO DAILY, (Reported) Canagliflozin (Invokana) 300 Mg Tab, 300 MG PO DAILY, (Reported) Folic Acid (Folic Acid) 1 Mg Tab, 1 MG PO DAILY for ALCOHOL WITHDRAWALS, #10 Glipizide (Glipizide) 10 Mg Tab, 10 MG PO BID, (Reported) Isoniazid (Isoniazid) 300 Mg Tab, 300 MG PO DAILY, (Reported) Levothyroxine Sodium (Synthroid) 150 Mcg Tab, 150 MCG PO DAILY, (Reported) Lisinopril (Lisinopril) 5 Mg Tab, 5 MG PO DAILY, (Reported) Meloxicam (Meloxicam) 15 Mg Tab, 15 MG PO DAILY, (Reported) Metformin Hydrochloride (Metformin HCl) 1,000 Mg Tab, 1,000 MG PO DAILY, ( Reported) Multivitamins *[facility]OCK[facility]* (Thera M Plus *[facility]OCK[facility]*) 1 Tab Tab, 1 TAB PO DAILY for ALCOHOL WITHDRAWALS, #10 Nicotine (Nicotine Transdermal Syst) 21 Mg/24 Hr Dis, 1 PATCH TD DAILY for SMOKING CESSATION, #10 Omeprazole (Omeprazole) 40 Mg Cap, 40 MG PO DAILY, (Reported) Pyridoxine HCl (Vitamin B 6) 50 Mg Tab, 50 MG PO DAILY, (Reported) Simvastatin (Simvastatin) 20 Mg Tab, 20 MG PO DAILY, (Reported) Vitamin D (Drisdol) 50,000 Unit Cap, 50,000 UNIT PO QWEEK, (Reported) TUESDAY Scheduled PRN Tramadol HCl (Tramadol HCl) 50 Mg Tab, 50 MG PO TID PRN for PAIN, (Reported) Trazodone HCl (Trazodone HCl) 50 Mg Tab, 50 MG PO QHSP PRN for INSOMNIA, #10 Allergies Coded Allergies: No Known Allergies (Unverified , 04/09/16) MEGAN RUSS MD May 10, 2017 20:10
== END 2017-05-10 12:15 | disposition home or self-care (01) | DRG 755 ==
LOC: M ED 09:16 → M ED INP 14:16 → M PSY 15:23
PROVIDERS: ADMIT Psychiatry & Neurology Psychiatry; ATTEND Psychiatry & Neurology Psychiatry
DX: F43.23 Adjustment disorder with mixed anxiety and depressed mood (principal); F10.10 Alcohol abuse, uncomplicated; F14.90 Cocaine use, unspecified, uncomplicated; Z79.82 Long term (current) use of aspirin; Z79.899 Other long term (current) drug therapy; I10 Essential (primary) hypertension; E03.9 Hypothyroidism, unspecified; K21.9 Gastro-esophageal reflux disease without esophagitis; F17.200 Nicotine dependence, unspecified, uncomplicated; G89.29 Other chronic pain; E55.9 Vitamin D deficiency, unspecified

== ENCOUNTER 2017-09-04 17:26 | Inpatient (IN) | payer OTHER ==
[2017-09-04 18:58] LABS: HEMATOCRIT 41.9 % (42.0-52.0); HEMOGLOBIN 13.8 g/dl (14.0-18.0); MEAN CORPUSCULAR HEMOGLOBIN 29.4 pg (27.0-33.0); MEAN CORPUSCULAR HGB CONC 32.9 g/dl (32.0-36.5); MEAN CORPUSCULAR VOLUME 89.1 fl (80.0-96.0); PLATELET COUNT, AUTOMATED 296 10^3/uL (150-450); RED CELL DISTRIBUTION WIDTH 12.7 % (11.5-14.5); WHITE BLOOD COUNT 9.4 10^3/uL (4.0-10.0)
[2017-09-04 19:14] LABS: AMPHETAMINES LEVEL URINE NEGATIVE (NEGATIVE); BARBITURATES URINE NEGATIVE (NEGATIVE); BENZODIAZEPINES URINE NEGATIVE (NEGATIVE); CANNABINOIDS URINE NEGATIVE (NEGATIVE); COCAINE METABOLITE URINE POSITIVE (NEGATIVE); METHADONE URINE NEGATIVE (NEGATIVE); OPIATES URINE NEGATIVE (NEGATIVE); PHENCYCLIDINE URINE NEGATIVE (NEGATIVE)
[2017-09-04 19:25] LABS: ALBUMIN 4.1 GM/DL (3.2-5.2); ALBUMIN/GLOBULIN RATIO 1.17 (1.00-1.93); ALKALINE PHOSPHATASE 64 U/L (45-117); ALT/SGPT 35 U/L (12-78); ANION GAP 8 MEQ/L (8-16); AST/SGOT 62 U/L (7-37); BILIRUBIN,DIRECT 0.1 MG/DL (0.0-0.2); BILIRUBIN,TOTAL 0.6 MG/DL (0.2-1.0); BLOOD UREA NITROGEN 12 MG/DL (7-18); CALCIUM LEVEL 9.3 MG/DL (8.5-10.1); CARBON DIOXIDE LEVEL 30 MEQ/L (21-32); CHLORIDE LEVEL 102 MEQ/L (98-107); CREATININE FOR GFR 0.88 MG/DL (0.70-1.30); GLOMERULAR FILTRATION RATE > 60.0 (>60); GLUCOSE, FASTING 147 MG/DL (70-105); POTASSIUM SERUM 3.9 MEQ/L (3.5-5.1); SALICYLATE LEVEL 1.8 MG/DL (5.0-30.0); SODIUM LEVEL 140 MEQ/L (136-145); TOTAL PROTEIN 7.6 GM/DL (6.4-8.2)
[2017-09-04 19:27] LABS: ACETAMINOPHEN LEVEL < 2.0 UG/ML (10.0-30.0); ETHYL ALCOHOL (ETHANOL) < 0.003 % (0.000-0.010)
[2017-09-05] MEDS ORDERED: ACETAMINOPHEN TAB 650MG DOSE (2X325MG) PO (00:45)
[2017-09-05] MEDS ORDERED: MOM 30ML SUSPENSION UDC PO (00:45)
[2017-09-05] MEDS ORDERED: traZODone 50 MG TAB PO (00:45)
[2017-09-05] MEDS ORDERED: MAALOX 30 ML SUSP *UDC PO (00:45)
[2017-09-05] MEDS: LEVOTHYROXINE 150MCG TABLET (0.15MG) PO (06:09)
[2017-09-05] MEDS: FOLIC ACID 1 MG TAB PO (09:00)
[2017-09-05] MEDS: ASPIRIN 81 MG ENTERIC TAB PO (09:00)
[2017-09-05] MEDS: PYRIDOXINE 50 MG TAB PO (09:00)
[2017-09-05] MEDS: MULTIVITAMINS/MINERALS THERAP 1 TAB PO (09:00)
[2017-09-06] MEDS: LEVOTHYROXINE 150MCG TABLET (0.15MG) PO (06:15)
[2017-09-06] MEDS: FOLIC ACID 1 MG TAB PO (09:23)
[2017-09-06] MEDS: MULTIVITAMINS/MINERALS THERAP 1 TAB PO (09:23)
[2017-09-06] MEDS: PYRIDOXINE 50 MG TAB PO (09:23)
[2017-09-06] MEDS: ASPIRIN 81 MG ENTERIC TAB PO (09:23)
[2017-09-06] MEDS: CitaloPRAM (CeleXA) 20 MG TAB PO (11:19)
[2017-09-07] MEDS: LEVOTHYROXINE 150MCG TABLET (0.15MG) PO (06:15)
[2017-09-07 08:19] LABS: ALBUMIN 3.9 GM/DL (3.2-5.2); ALBUMIN/GLOBULIN RATIO 1.08 (1.00-1.93); ALKALINE PHOSPHATASE 57 U/L (45-117); ALT/SGPT 32 U/L (12-78); ANION GAP 8 MEQ/L (8-16); AST/SGOT 26 U/L (7-37); BILIRUBIN,TOTAL 0.5 MG/DL (0.2-1.0); BLOOD UREA NITROGEN 9 MG/DL (7-18); CALCIUM LEVEL 8.9 MG/DL (8.5-10.1); CARBON DIOXIDE LEVEL 28 MEQ/L (21-32); CHLORIDE LEVEL 102 MEQ/L (98-107); CHOLESTEROL LEVEL 171 MG/DL (<200); CHOLESTEROL RISK RATIO 4.275 (<5); GLOMERULAR FILTRATION RATE > 60.0 (>60); GLUCOSE, FASTING 193 MG/DL (70-100); HDL CHOLESTEROL 40 MG/DL (>40); LDL CHOLESTEROL 87.4 MG/DL (<100); NON-HDL-C 131 MG/DL; POTASSIUM SERUM 4.1 MEQ/L (3.5-5.1); SODIUM LEVEL 138 MEQ/L (136-145); T UPTAKE 37 % (33-40); THYROXINE (T4) 10.9 UG/DL (4.5-12.0); TOTAL PROTEIN 7.5 GM/DL (6.4-8.2); TRIGLYCERIDES LEVEL 218 MG/DL (<150)
[2017-09-07 08:49] LABS: ESTIMATED AVERAGE GLUCOSE 189 MG/DL (60-110); HEMOGLOBIN A1c 8.2 %
[2017-09-07] MEDS ORDERED: GLUCOSE 4 GM CHEW TABLET PO (09:00)
[2017-09-07] MEDS ORDERED: GLUCAGON FOR INJ 1 MG VIAL (J1610) SC (09:00)
[2017-09-07] MEDS ORDERED: DEXTROSE 50% 50 ML SYRINGE IV (09:00)
[2017-09-07] MEDS: HumaLOG INSULIN (NovoLOG) PER UNIT SC ×4 (09:05→22:03)
[2017-09-07] MEDS: PYRIDOXINE 50 MG TAB PO (09:39)
[2017-09-07] MEDS: MULTIVITAMINS/MINERALS THERAP 1 TAB PO (09:39)
[2017-09-07] MEDS: FOLIC ACID 1 MG TAB PO (09:39)
[2017-09-07] MEDS: ISONIAZID 300 MG TAB PO (09:40)
[2017-09-07] MEDS: CitaloPRAM (CeleXA) 20 MG TAB PO (09:40)
[2017-09-07] MEDS: ASPIRIN 81 MG ENTERIC TAB PO (09:40)
[2017-09-07 11:22] LABS: BEDSIDE GLUCOSE 222 MG/DL (70-105)
[2017-09-07 11:29] LABS: HEPATITIS B SURFACE ANTIGEN NEGATIVE (NEGATIVE)
[2017-09-07 11:30] LABS: HEPATITIS C VIRUS ABY INDEX < 0.0 INDEX (<0.8)
[2017-09-07 11:37] LABS: HEPATITIS B CORE ANTIBODY IGM NEGATIVE (NEGATIVE)
[2017-09-07 11:40] LABS: HEPATITIS A ANTIBODY IGM NEGATIVE (NEGATIVE)
[2017-09-07 17:05] LABS: BEDSIDE GLUCOSE 136 MG/DL (70-105)
[2017-09-07] MEDS: LISINOPRIL 5 MG TAB PO (22:03)
[2017-09-07] MEDS: SIMVASTATIN 20 MG TAB PO (22:03)
[2017-09-07 22:16] LABS: BEDSIDE GLUCOSE 305 MG/DL (70-105)
[2017-09-08] MEDS: LEVOTHYROXINE 150MCG TABLET (0.15MG) PO (05:56)
[2017-09-08 06:11] LABS: BEDSIDE GLUCOSE 197 MG/DL (70-105)
[2017-09-08] MEDS: HumaLOG INSULIN (NovoLOG) PER UNIT SC ×2 (06:46→12:14)
[2017-09-08] MEDS: ISONIAZID 300 MG TAB PO (09:59)
[2017-09-08] MEDS: CitaloPRAM (CeleXA) 20 MG TAB PO (09:59)
[2017-09-08] MEDS: ASPIRIN 81 MG ENTERIC TAB PO (09:59)
[2017-09-08] MEDS: PYRIDOXINE 50 MG TAB PO (09:59)
[2017-09-08] MEDS: FOLIC ACID 1 MG TAB PO (09:59)
[2017-09-08] MEDS: MULTIVITAMINS/MINERALS THERAP 1 TAB PO (09:59)
[2017-09-08 12:20] LABS: BEDSIDE GLUCOSE 190 MG/DL (70-105)
== END 2017-09-08 15:48 | disposition home or self-care (01) | DRG 774 ==
LOC: M ED 17:26 → M ED INP 20:57 → M PSY 23:13
DX: F14.24 Cocaine dependence with cocaine-induced mood disorder (principal); F10.20 Alcohol dependence, uncomplicated; I10 Essential (primary) hypertension; F60.2 Antisocial personality disorder; Z79.82 Long term (current) use of aspirin; E11.9 Type 2 diabetes mellitus without complications; E78.5 Hyperlipidemia, unspecified; E03.9 Hypothyroidism, unspecified; K21.9 Gastro-esophageal reflux disease without esophagitis; Z96.653 Presence of artificial knee joint, bilateral; F17.210 Nicotine dependence, cigarettes, uncomplicated; Z91.14 Patient's other noncompliance with medication regimen; Z79.899 Other long term (current) drug therapy; Z63.0 Problems in relationship with spouse or partner

== ENCOUNTER 2018-02-05 23:07 | Emergency (ER) | payer OTHER ==
[2018-02-06] MEDS: traMADol 50 MG TAB PO (01:30)
[2018-02-09 08:29] LABS: BEDSIDE GLUCOSE 154 MG/DL (70-105)
== END 2018-02-06 02:31 | disposition home or self-care (01) ==
LOC: M ED 23:07
DX: M25.561 Pain in right knee (principal); M25.562 Pain in left knee; Z96.653 Presence of artificial knee joint, bilateral; Z91.19 Patient's noncompliance with other medical treatment and regimen; E11.9 Type 2 diabetes mellitus without complications; I10 Essential (primary) hypertension; K21.9 Gastro-esophageal reflux disease without esophagitis; E78.5 Hyperlipidemia, unspecified; E03.9 Hypothyroidism, unspecified; F17.210 Nicotine dependence, cigarettes, uncomplicated; Z79.899 Other long term (current) drug therapy
CPT/HCPCS: 99282

== ENCOUNTER 2018-10-06 21:35 | Emergency (ER) | payer MEDICAID, OTHER ==
[~2018-10-06] VITALS: Ht 172.7 cm; Wt 100.0 kg
[~2018-10-06 21:35] MED LIST changes: +AMLO2.5T3 PO; +AMLO25TA PO; +ASPI1TAB PO; +ASPI81CH PO; +BUPR150T3 PO; +CELE20TA PO; +DRIS50003 PO; +FOLI1TAB11 PO; +GLIP10TA18 PO; +GLIP10TA6 PO; +INVO300T PO; +ISON300T4 PO; +LEVO150T7 PO; +MELO15TA28 PO; +NICO21PAT TD; +PATIENT COMMENT; +PYRI50TA8 PO; +SIMV80TA13 PO; +SYNT150T PO; +TRAM50TA2 PO; +TRAZ-160 PO; +TRAZO50TA PO; +TRUL0.5I SC; +TRUL10IN SC; +VITA50TA43 PO; +VITMTA PO
[2018-10-06] MEDS ORDERED: NS 1,000 ML IV ONE ×2 (22:15→23:45)
[2018-10-06 22:21] LABS: HEMATOCRIT 44.3 % (42.0-52.0); HEMOGLOBIN 14.7 g/dl (13.5-17.5); MEAN CORPUSCULAR HEMOGLOBIN 30.1 pg (27.0-33.0); MEAN CORPUSCULAR HGB CONC 33.2 g/dl (32.0-36.5); MEAN CORPUSCULAR VOLUME 90.8 fl (80.0-96.0); PLATELET COUNT, AUTOMATED 309 10^3/uL (150-450); RED BLOOD COUNT 4.88 10^6/uL (4.30-6.10); WHITE BLOOD COUNT 11.5 10^3/uL (4.0-10.0)
[2018-10-06 23:05] LABS: ACETAMINOPHEN LEVEL < 2.0 UG/ML (10.0-30.0); ALBUMIN 4.3 GM/DL (3.2-5.2); ALT/SGPT 29 U/L (12-78); BILIRUBIN,DIRECT 0.1 MG/DL (0.0-0.2); BILIRUBIN,TOTAL 0.5 MG/DL (0.2-1.0); BLOOD UREA NITROGEN 8 MG/DL (7-18); CALCIUM LEVEL 9.5 MG/DL (8.5-10.1); CARBON DIOXIDE LEVEL 19 MEQ/L (21-32); CHLORIDE LEVEL 100 MEQ/L (98-107); CPK CREATINE PHOSPHOKINASE 826 U/L (39-308); CREATININE FOR GFR 1.04 MG/DL (0.70-1.30); ETHYL ALCOHOL (ETHANOL) 0.006 % (0.000-0.010); GLOMERULAR FILTRATION RATE > 60.0 (>60); GLUCOSE, FASTING 182 MG/DL (70-100); MB/CK RELATIVE INDEX 1.27 (< OR =4); POTASSIUM SERUM 4.4 MEQ/L (3.5-5.1); SALICYLATE LEVEL 3.1 MG/DL (5.0-30.0); SODIUM LEVEL 136 MEQ/L (136-145); TOTAL PROTEIN 8.7 GM/DL (6.4-8.2); TROPONIN I < 0.02 NG/ML (< 0.10)
[2018-10-06 23:32] LABS: AMPHETAMINES LEVEL URINE NEGATIVE (NEGATIVE); BARBITURATES URINE NEGATIVE (NEGATIVE); BENZODIAZEPINES URINE NEGATIVE (NEGATIVE); CANNABINOIDS URINE NEGATIVE (NEGATIVE); COCAINE METABOLITE URINE POSITIVE (NEGATIVE); METHADONE URINE NEGATIVE (NEGATIVE); OPIATES URINE NEGATIVE (NEGATIVE); PHENCYCLIDINE URINE NEGATIVE (NEGATIVE)
[2018-10-07 04:13] LABS: CPK CREATINE PHOSPHOKINASE 723 U/L (39-308); MB/CK RELATIVE INDEX 1.27 (< OR =4); TROPONIN I < 0.02 NG/ML (< 0.10)
--- NOTE | 2018-10-07 05:55 | ECGEPIP ---
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
--- NOTE | 2018-10-07 05:56 | ECGEPIP ---
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
[2018-10-07] MEDS ORDERED: LEVOTHYROXINE 150MCG TABLET (0.15MG) PO SCH (06:00)
[2018-10-07] MEDS ORDERED: LISINOPRIL 5 MG TAB PO ONE (08:15)
[2018-10-07] MEDS ORDERED: amLODIPine 5 MG TAB PO ONE (08:15)
[2018-10-07] MEDS ORDERED: glipiZIDE (GLUCOTROL) 5 MG TAB PO ONE (08:15)
[2018-10-07] MEDS ORDERED: ASPIRIN 81 MG CHEW TABLET PO ONE (08:15)
[2018-10-07] MEDS ORDERED: OMEPRAZOLE 20 MG CAP PO ONE (08:15)
[2018-10-07] MEDS ORDERED: SIMVASTATIN 20 MG TAB PO ONE (08:15)
[2018-10-07] MEDS ORDERED: glipiZIDE XL 5 MG TABCR PO ONE (08:30)
[2018-10-07] MEDS ORDERED: VICT18IN SC (08:46)
[2018-10-07] MEDS ORDERED: METF500T13 PO (08:46)
[2018-10-07] MEDS ORDERED: STEG5TAB PO (08:46)
[2018-10-07 10:01] VITALS: BP 131/71
[2018-10-07] MEDS: MELOXICAM (MOBIC) 7.5 MG TAB PO SCH ×2 (10:01→10:02)
[2018-10-07 12:24] VITALS: BP 162/92
== END 2018-10-07 12:26 ==
LOC: M ED 21:35
DX: R45.851 Suicidal ideations (principal); E86.0 Dehydration; F14.10 Cocaine abuse, uncomplicated; R00.0 Tachycardia, unspecified; F32.9 Major depressive disorder, single episode, unspecified; K21.9 Gastro-esophageal reflux disease without esophagitis; E78.5 Hyperlipidemia, unspecified; E10.9 Type 1 diabetes mellitus without complications; I10 Essential (primary) hypertension; F17.200 Nicotine dependence, unspecified, uncomplicated; Z79.899 Other long term (current) drug therapy; Z79.82 Long term (current) use of aspirin; Z79.84 Long term (current) use of oral hypoglycemic drugs
CPT/HCPCS: 80048; 80076; 80307; 82550; 82553; 84443; 85027; 93005; 96360; 99285; G0480

== ENCOUNTER → 2019-05-02 | Outpatient (REF) | payer OTHER, MEDICAID ==
[~2019-05-02] MED LIST changes: -ASPI1TAB PO; -ASPI81CH PO; +ASPI81CH49 PO; +ASPI81TA26 PO; -DULO30CA PO; +DULO30CA9 PO; +ISON300T18; +ISON300T18 PO; -ISON300T4; -ISON300T4 PO; +METF500T13 PO; -OMEP40CA2 PO; +OMEP40CA97 PO; -SIMV20TA2 PO; +SIMV20TA22 PO; +STEG5TAB PO; -TRAZ-160 PO; +TRAZ-252 PO; +TRAZ1TAB10 PO; -TRAZO50TA PO; +VICT18IN SC
[2019-05-02 11:13] LABS: BASO % 0.6 % (0.0-1.0); EOS # 0.5 10^3/uL (0.0-0.5); EOS % 6.5 % (0.0-3.0); HEMATOCRIT 41.5 % (42.0-52.0); HEMOGLOBIN 13.6 g/dl (13.5-17.5); LYMPH # 3.3 10^3/uL (1.5-5.0); LYMPH % 45.1 % (24.0-44.0); MEAN CORPUSCULAR HGB CONC 32.8 g/dl (32.0-36.5); MEAN CORPUSCULAR VOLUME 91.6 fl (80.0-96.0); MONO # 0.7 10^3/uL (0.0-0.8); MONO % 9.7 % (0.0-5.0); NEUTROPHILS # 2.8 10^3/uL (1.5-8.5); NEUTROPHILS % 37.8 % (36.0-66.0); PLATELET COUNT, AUTOMATED 362 10^3/uL (150-450); RED BLOOD COUNT 4.53 10^6/uL (4.30-6.10); WHITE BLOOD COUNT 7.3 10^3/uL (4.0-10.0)
[2019-05-02 11:29] LABS: ALBUMIN 3.8 GM/DL (3.2-5.2); ALT/SGPT 25 U/L (12-78); BILIRUBIN,TOTAL 0.3 MG/DL (0.2-1.0); BLOOD UREA NITROGEN 7 MG/DL (7-18); CALCIUM LEVEL 9.7 MG/DL (8.5-10.1); CARBON DIOXIDE LEVEL 26 MEQ/L (21-32); CHLORIDE LEVEL 109 MEQ/L (98-107); CHOLESTEROL LEVEL 124 MG/DL (<200); CHOLESTEROL RISK RATIO 3.351 (<5); CREATININE FOR GFR 0.92 MG/DL (0.70-1.30); FREE T4 1.51 NG/DL (0.76-1.46); GLOMERULAR FILTRATION RATE > 60.0 (>60); GLUCOSE, FASTING 116 MG/DL (70-100); HDL CHOLESTEROL 37 MG/DL (>40); LDL CHOLESTEROL 70 MG/DL (<100); NON-HDL-C 87 MG/DL; POTASSIUM SERUM 4.4 MEQ/L (3.5-5.1); SODIUM LEVEL 142 MEQ/L (136-145); THYROID STIMULATING HORMONE 0.237 uIU/ML (0.358-3.740); TOTAL 25(OH) VITAMIN D 23.6 NG/ML (30.0-100.0); TOTAL PROTEIN 7.1 GM/DL (6.4-8.2); TRIGLYCERIDES LEVEL 85 MG/DL (<150)
[2019-05-02 12:07] LABS: HEMOGLOBIN A1c 7.4 %
== END ==
LOC: M LAB REF 11:01
PROVIDERS: ATTEND Nurse Practitioner Family
DX: Z00.01 Encounter for general adult medical examination with abnormal findings (principal)

== ENCOUNTER → 2019-10-26 | Outpatient (REF) | payer OTHER, MEDICAID ==
[2019-10-26 13:25] LABS: BASO % 0.3 % (0.0-1.0); EOS # 0.2 10^3/uL (0.0-0.5); EOS % 2.7 % (0.0-3.0); HEMATOCRIT 39.5 % (42.0-52.0); HEMOGLOBIN 12.7 g/dl (13.5-17.5); LYMPH # 3.2 10^3/uL (1.5-5.0); LYMPH % 43.8 % (24.0-44.0); MEAN CORPUSCULAR HEMOGLOBIN 28.6 pg (27.0-33.0); MEAN CORPUSCULAR HGB CONC 32.2 g/dl (32.0-36.5); MONO # 0.7 10^3/uL (0.0-0.8); MONO % 9.5 % (0.0-5.0); NEUTROPHILS # 3.2 10^3/uL (1.5-8.5); NEUTROPHILS % 43.4 % (36.0-66.0); PLATELET COUNT, AUTOMATED 352 10^3/uL (150-450); RED BLOOD COUNT 4.44 10^6/uL (4.30-6.10); WHITE BLOOD COUNT 7.3 10^3/uL (4.0-10.0)
[2019-10-26 13:33] LABS: BLOOD UREA NITROGEN 11 MG/DL (7-18); CREATININE FOR GFR 0.99 MG/DL (0.70-1.30); GLUCOSE, FASTING 127 MG/DL (70-100)
[2019-10-26 13:34] LABS: ALBUMIN 3.5 GM/DL (3.2-5.2); ALT/SGPT 24 U/L (12-78); BILIRUBIN,TOTAL 0.5 MG/DL (0.2-1.0); CALCIUM LEVEL 9.2 MG/DL (8.5-10.1); CARBON DIOXIDE LEVEL 28 MEQ/L (21-32); CHLORIDE LEVEL 106 MEQ/L (98-107); CHOLESTEROL LEVEL 114 MG/DL (<200); CHOLESTEROL RISK RATIO 3.352 (<5); FREE T4 1.38 NG/DL (0.76-1.46); GLOMERULAR FILTRATION RATE > 60.0 (>60); HDL CHOLESTEROL 34 MG/DL (>40); LDL CHOLESTEROL 71 MG/DL (<100); NON-HDL-C 80 MG/DL; POTASSIUM SERUM 4.5 MEQ/L (3.5-5.1); SODIUM LEVEL 140 MEQ/L (136-145); TOTAL 25(OH) VITAMIN D 21.3 NG/ML (30.0-100.0); TOTAL PROTEIN 6.8 GM/DL (6.4-8.2); TRIGLYCERIDES LEVEL 46 MG/DL (<150)
[2019-10-26 13:50] LABS: HEMOGLOBIN A1c 8.4 %
== END ==
LOC: M LAB REF 12:28
PROVIDERS: ATTEND Physician Assistant
DX: E03.9 Hypothyroidism, unspecified (principal); F19.11 Other psychoactive substance abuse, in remission; E11.65 Type 2 diabetes mellitus with hyperglycemia

== ENCOUNTER → 2020-04-25 | Outpatient (CLI) | payer MEDICAID, OTHER ==
[2020-04-25 11:50] LABS: HEMATOCRIT 35.1 % (42.0-52.0); HEMOGLOBIN 11.7 g/dl (13.5-17.5); MEAN CORPUSCULAR HEMOGLOBIN 30.1 pg (27.0-33.0); MEAN CORPUSCULAR HGB CONC 33.3 g/dl (32.0-36.5); MEAN CORPUSCULAR VOLUME 90.2 fl (80.0-96.0); PLATELET COUNT, AUTOMATED 308 10^3/uL (150-450); RED BLOOD COUNT 3.89 10^6/uL (4.30-6.10)
[2020-04-25 12:22] LABS: ERYTHROCYTE SEDIMENTATION RATE 9 mm/hr (0-15)
== END ==
LOC: M LAB 10:35
PROVIDERS: ATTEND Orthopaedic Surgery Adult Reconstructive Orthopaedic Surgery
DX: M25.561 Pain in right knee (principal); M25.562 Pain in left knee

== ENCOUNTER → 2020-07-17 | Outpatient (REF) | payer OTHER ==
[2020-07-17 17:53] LABS: HEMATOCRIT 38.6 % (42.0-52.0); HEMOGLOBIN 12.6 g/dl (13.5-17.5); MEAN CORPUSCULAR HEMOGLOBIN 28.3 pg (27.0-33.0); MEAN CORPUSCULAR HGB CONC 32.6 g/dl (32.0-36.5); MEAN CORPUSCULAR VOLUME 86.7 fl (80.0-96.0); PLATELET COUNT, AUTOMATED 350 10^3/uL (150-450); RED BLOOD COUNT 4.45 10^6/uL (4.30-6.10); WHITE BLOOD COUNT 7.4 10^3/uL (4.0-10.0)
[2020-07-17 19:21] LABS: ALBUMIN 3.7 GM/DL (3.2-5.2); ALT/SGPT 19 U/L (12-78); BILIRUBIN,TOTAL 0.4 MG/DL (0.2-1.0); BLOOD UREA NITROGEN 9 MG/DL (7-18); CALCIUM LEVEL 9.3 MG/DL (8.5-10.1); CARBON DIOXIDE LEVEL 26 MEQ/L (21-32); CHLORIDE LEVEL 107 MEQ/L (98-107); CHOLESTEROL LEVEL 130 MG/DL (<200); CHOLESTEROL RISK RATIO 3.714 (<5); CREATININE FOR GFR 0.85 MG/DL (0.70-1.30); GLOMERULAR FILTRATION RATE > 60.0 (>60); GLUCOSE, FASTING 178 MG/DL (70-100); HDL CHOLESTEROL 35 MG/DL (>40); LDL CHOLESTEROL 74 MG/DL (<100); NON-HDL-C 95 MG/DL; POTASSIUM SERUM 4.4 MEQ/L (3.5-5.1); SODIUM LEVEL 140 MEQ/L (136-145); TOTAL PROTEIN 6.9 GM/DL (6.4-8.2); TRIGLYCERIDES LEVEL 104 MG/DL (<150)
[2020-07-17 19:26] LABS: TOTAL 25(OH) VITAMIN D 24.3 NG/ML (30.0-100.0)
[2020-07-17 20:29] LABS: HEMOGLOBIN A1c 9.9 %
== END ==
LOC: M LAB REF 15:52
PROVIDERS: ATTEND Physician Assistant
DX: E11.65 Type 2 diabetes mellitus with hyperglycemia (principal)

== ENCOUNTER → 2020-09-02 | Outpatient (CLI) | payer SELFPAY ==
[~2020-09-02] MED LIST changes: -BUPR150T3 PO; +BUPR150T4 PO; -LISI-542 PO; +LISI-898 PO
== END ==
LOC: M LABSMTC 10:58
PROVIDERS: ATTEND Pediatrics
DX: Z20.822 Contact with and (suspected) exposure to COVID-19 (principal)

== ENCOUNTER → 2020-09-12 | Outpatient (REF) | payer OTHER, MEDICAID ==
[~2020-09-12] MED LIST changes: +LISI-542 PO; -LISI-898 PO
[2020-09-12 16:03] LABS: BASO % 0.3 % (0.0-1.0); EOS # 0.2 10^3/uL (0.0-0.5); EOS % 2.9 % (0.0-3.0); HEMATOCRIT 41.1 % (42.0-52.0); HEMOGLOBIN 13.3 g/dl (13.5-17.5); LYMPH # 3.2 10^3/uL (1.5-5.0); LYMPH % 44.3 % (24.0-44.0); MEAN CORPUSCULAR HEMOGLOBIN 29.1 pg (27.0-33.0); MEAN CORPUSCULAR HGB CONC 32.4 g/dl (32.0-36.5); MEAN CORPUSCULAR VOLUME 89.9 fl (80.0-96.0); MONO # 0.6 10^3/uL (0.0-0.8); MONO % 8.3 % (0.0-5.0); NEUTROPHILS # 3.2 10^3/uL (1.5-8.5); NEUTROPHILS % 43.9 % (36.0-66.0); PLATELET COUNT, AUTOMATED 354 10^3/uL (150-450); RED BLOOD COUNT 4.57 10^6/uL (4.30-6.10); WHITE BLOOD COUNT 7.2 10^3/uL (4.0-10.0)
[2020-09-12 16:42] LABS: FREE T4 1.67 NG/DL (0.76-1.46); PERCENT SATURATION 16.4 % (19.7-50.0); THYROID STIMULATING HORMONE 0.747 uIU/ML (0.358-3.740)
== END ==
LOC: M LAB REF 15:43
PROVIDERS: ATTEND Physician Assistant
DX: D64.9 Anemia, unspecified (principal); E03.9 Hypothyroidism, unspecified

== ENCOUNTER → 2020-10-03 | Outpatient (CLI) | payer SELFPAY ==
[~2020-10-03] MED LIST changes: -LISI-542 PO; +LISI-898 PO
== END ==
LOC: M LABSMTC 10:29
PROVIDERS: ATTEND Pediatrics
DX: Z20.822 Contact with and (suspected) exposure to COVID-19 (principal)

== ENCOUNTER → 2020-12-05 | Outpatient (REF) | payer OTHER, MEDICAID ==
[~2020-12-05] MED LIST changes: +BUPR150T12 PO; -BUPR150T4 PO
[2020-12-05 16:15] LABS: BASO % 0.4 % (0.0-1.0); EOS # 0.3 10^3/uL (0.0-0.5); EOS % 3.4 % (0.0-3.0); HEMATOCRIT 41.4 % (42.0-52.0); HEMOGLOBIN 13.1 g/dl (13.5-17.5); LYMPH # 3.8 10^3/uL (1.5-5.0); LYMPH % 42.5 % (24.0-44.0); MEAN CORPUSCULAR HEMOGLOBIN 28.1 pg (27.0-33.0); MEAN CORPUSCULAR HGB CONC 31.6 g/dl (32.0-36.5); MEAN CORPUSCULAR VOLUME 88.7 fl (80.0-96.0); MONO # 0.7 10^3/uL (0.0-0.8); MONO % 7.9 % (2.0-8.0); NEUTROPHILS # 4.1 10^3/uL (1.5-8.5); NEUTROPHILS % 45.5 % (36.0-66.0); PLATELET COUNT, AUTOMATED 338 10^3/uL (150-450); RED BLOOD COUNT 4.67 10^6/uL (4.30-6.10)
== END ==
LOC: M LAB REF 15:43
PROVIDERS: ATTEND Family Medicine Addiction Medicine
DX: D64.9 Anemia, unspecified (principal)

== ENCOUNTER → 2021-08-05 | Outpatient (CLI) | payer OTHER ==
[~2021-08-05] MED LIST changes: -LISI-898 PO; +LISI5TAB11 PO; +OMEP40CA4 PO; -OMEP40CA97 PO
== END ==
LOC: M RAD 11:04
PROVIDERS: ATTEND Physician Assistant
DX: R05.9 Cough, unspecified (principal)

== ENCOUNTER → 2021-08-26 | Outpatient (CLI) | payer OTHER | LOC: M LABSMTC 09:16 | PROVIDERS: ATTEND Anesthesiology | DX: Z01.818 Encounter for other preprocedural examination (principal); Z11.52 Encounter for screening for COVID-19 ==

== ENCOUNTER 2021-08-31 08:00 | Day surgery (SDC) | payer OTHER ==
[~2021-08-31] VITALS: Ht 172.7 cm; Wt 94.8 kg
[~2021-08-31 08:00] MED LIST changes: +LIDOCAINE 2% MDV 20ML VIAL As Ordered ONE; +NS 1,000 ML IV ONE; +fentaNYL 100 MCG/2 ML INJECTION (J3010) As Ordered ONE; +propofoL 500 MG/50 ML VIAL As Ordered ONE
[2021-08-31 09:30] VITALS: BP 112/65
== END 2021-08-31 09:53 | disposition home or self-care (01) ==
LOC: M OPP 08:00
PROVIDERS: ATTEND Internal Medicine Gastroenterology
DX: Z12.11 Encounter for screening for malignant neoplasm of colon (principal); K57.30 Diverticulosis of large intestine without perforation or abscess without bleeding; K64.8 Other hemorrhoids; K29.70 Gastritis, unspecified, without bleeding; K57.10 Diverticulosis of small intestine without perforation or abscess without bleeding; D50.9 Iron deficiency anemia, unspecified; Z79.82 Long term (current) use of aspirin; Z79.899 Other long term (current) drug therapy
CPT/HCPCS: 43239; 45378; 88305; J3010

== ENCOUNTER → 2021-12-29 | Outpatient (CLI) | payer OTHER ==
[~2021-12-29] MED LIST changes: -LIDOCAINE 2% MDV 20ML VIAL As Ordered ONE; -NS 1,000 ML IV ONE; -fentaNYL 100 MCG/2 ML INJECTION (J3010) As Ordered ONE; -propofoL 500 MG/50 ML VIAL As Ordered ONE
[2021-12-29 07:50] LABS: BASO % 0.4 % (0.0-1.0); EOS # 0.2 10^3/uL (0.0-0.5); EOS % 3.1 % (0.0-3.0); HEMATOCRIT 42.7 % (42.0-52.0); HEMOGLOBIN 13.8 g/dl (13.5-17.5); LYMPH # 3.3 10^3/uL (1.5-5.0); LYMPH % 42.5 % (24.0-44.0); MEAN CORPUSCULAR HEMOGLOBIN 28.9 pg (27.0-33.0); MEAN CORPUSCULAR HGB CONC 32.3 g/dl (32.0-36.5); MEAN CORPUSCULAR VOLUME 89.3 fl (80.0-96.0); MONO # 0.6 10^3/uL (0.0-0.8); NEUTROPHILS # 3.7 10^3/uL (1.5-8.5); NEUTROPHILS % 46.7 % (36.0-66.0); PLATELET COUNT, AUTOMATED 372 10^3/uL (150-450); RED BLOOD COUNT 4.78 10^6/uL (4.30-6.10); WHITE BLOOD COUNT 7.8 10^3/uL (4.0-10.0)
[2021-12-29 08:11] LABS: PERCENT SATURATION 17.1 % (19.7-50.0)
== END ==
LOC: M LAB 06:49
PROVIDERS: ATTEND Physician Assistant Medical
DX: D50.9 Iron deficiency anemia, unspecified (principal)

== ENCOUNTER → 2021-12-29 | Outpatient (CLI) | payer OTHER ==
[2021-12-29 08:18] LABS: HEMOGLOBIN A1c 8.6 %
== END ==
LOC: M LAB 06:51
PROVIDERS: ATTEND Orthopaedic Surgery Adult Reconstructive Orthopaedic Surgery
DX: E11.9 Type 2 diabetes mellitus without complications (principal)

== ENCOUNTER → 2022-06-30 | Outpatient (CLI) | payer MEDICAID ==
[~2022-06-30] MED LIST changes: +SIMV-253 PO; -ZOCO20TA PO
== END ==
LOC: M OUTALCOH 12:36
PROVIDERS: ATTEND Psychiatry & Neurology Psychiatry
DX: F10.10 Alcohol abuse, uncomplicated (principal)

== ENCOUNTER → 2022-07-14 | Outpatient (RCR) | payer MEDICAID | LOC: M OUTALCOH 07-07 12:53 | PROVIDERS: ATTEND Psychiatry & Neurology Psychiatry | DX: F10.20 Alcohol dependence, uncomplicated (principal); F14.20 Cocaine dependence, uncomplicated; F15.20 Other stimulant dependence, uncomplicated ==

== ENCOUNTER 2022-08-13 09:30 | Outpatient (RCR) | payer MEDICAID | END 2022-08-14 | LOC: M OUTALCOH 09:30 | PROVIDERS: ATTEND Psychiatry & Neurology Psychiatry | DX: F10.20 Alcohol dependence, uncomplicated (principal); F14.20 Cocaine dependence, uncomplicated; F15.20 Other stimulant dependence, uncomplicated ==

== ENCOUNTER → 2022-09-01 | Outpatient (REF) | LOC: M RAD 09:00 | PROVIDERS: ATTEND Nurse Practitioner Adult Health | DX: Z00.00 Encounter for general adult medical examination without abnormal findings (principal) ==

== ENCOUNTER 2022-09-13 12:36 | Outpatient (RCR) | payer MEDICAID | END 2022-09-14 | LOC: M OUTALCOH 12:36 | PROVIDERS: ATTEND Psychiatry & Neurology Psychiatry | DX: F10.20 Alcohol dependence, uncomplicated (principal); F14.20 Cocaine dependence, uncomplicated; F15.20 Other stimulant dependence, uncomplicated ==

== ENCOUNTER 2022-10-11 13:00 | Outpatient (RCR) | payer MEDICAID | END 2022-10-12 | LOC: M OUTALCOH 13:00 | PROVIDERS: ATTEND Psychiatry & Neurology Psychiatry | DX: F10.20 Alcohol dependence, uncomplicated (principal); F14.20 Cocaine dependence, uncomplicated; F15.20 Other stimulant dependence, uncomplicated ==

== ENCOUNTER 2022-11-11 13:15 | Outpatient (RCR) | payer MEDICAID | END 2022-11-12 | LOC: M OUTALCOH 13:15 | PROVIDERS: ATTEND Psychiatry & Neurology Psychiatry | DX: F10.20 Alcohol dependence, uncomplicated (principal); F14.20 Cocaine dependence, uncomplicated; F15.20 Other stimulant dependence, uncomplicated ==

== ENCOUNTER → 2022-11-17 | Outpatient (REF) | payer MEDICAID ==
[2022-11-17 18:44] LABS: CREATININE, URINE 239.2 MG/DL; MAU/CREAT RATIO 5.4 MCG/MG (0.0-30.0)
== END ==
LOC: M LAB REF 16:33
PROVIDERS: ATTEND Physician Assistant
DX: E11.65 Type 2 diabetes mellitus with hyperglycemia (principal)

== ENCOUNTER → 2022-11-19 | Outpatient (CLI) | payer OTHER | LOC: M RAD 13:27 | PROVIDERS: ATTEND Physician Assistant | DX: M25.571 Pain in right ankle and joints of right foot (principal) ==

== ENCOUNTER → 2022-12-03 | Outpatient (CLI) | payer OTHER | LOC: M PLAIMG 13:32 | PROVIDERS: ATTEND Physician Assistant | DX: M25.571 Pain in right ankle and joints of right foot (principal); M25.871 Other specified joint disorders, right ankle and foot ==

== ENCOUNTER → 2023-08-23 | Outpatient (REF) | payer OTHER ==
[~2023-08-23] MED LIST changes: +GLIP5TAB17 PO; -GLIP5TAB8 PO
[2023-08-23 16:07] LABS: APPEARANCE, URINE CLOUDY (CLEAR); BACTERIA, URINE AUTO 1+ (NEGATIVE); BILIRUBIN, URINE AUTO NEGATIVE (NEGATIVE); BLOOD, URINE BLOOD 1+ (NEGATIVE); COLOR, URINE YELLOW (YELLOW); GLUCOSE, URINE (UA) AUTO 3+ mg/dL (NEGATIVE); KETONE, URINE AUTO NEGATIVE (NEGATIVE); LEUKOCYTE ESTERASE, URINE AUTO 3+ (NEGATIVE); MUCUS, URINE SMALL (NEGATIVE); NITRITE, URINE AUTO NEGATIVE (NEGATIVE); PROTEIN, URINE AUTO NEGATIVE (NEGATIVE); RBC, URINE AUTO 8 /HPF (0-3); SPECIFIC GRAVITY URINE AUTO 1.038 (1.002-1.035); SQUAMOUS EPITHELIAL CELL UR AU 0 /HPF (0-6); WBC, URINE AUTO TNTC /HPF (0-3)
== END ==
LOC: M LABSMT 11:36
PROVIDERS: ATTEND Urology
DX: R30.0 Dysuria (principal)

== ENCOUNTER → 2023-09-06 | Outpatient (REF) | payer OTHER ==
[2023-09-06 20:39] LABS: APPEARANCE, URINE CLEAR (CLEAR); BACTERIA, URINE AUTO NEGATIVE (NEGATIVE); BILIRUBIN, URINE AUTO NEGATIVE (NEGATIVE); BLOOD, URINE BLOOD NEGATIVE (NEGATIVE); COLOR, URINE YELLOW (YELLOW); GLUCOSE, URINE (UA) AUTO 3+ mg/dL (NEGATIVE); KETONE, URINE AUTO NEGATIVE (NEGATIVE); LEUKOCYTE ESTERASE, URINE AUTO NEGATIVE (NEGATIVE); NITRITE, URINE AUTO NEGATIVE (NEGATIVE); PROTEIN, URINE AUTO NEGATIVE (NEGATIVE); RBC, URINE AUTO 0 /HPF (0-3); SPECIFIC GRAVITY URINE AUTO 1.021 (1.002-1.035); SQUAMOUS EPITHELIAL CELL UR AU 0 /HPF (0-6); UROBILINOGEN, URINE AUTO 0.2 mg/dL (0.0-2.0); WBC, URINE AUTO 1 /HPF (0-3)
== END ==
LOC: M SMT 17:03
PROVIDERS: ATTEND Urology
DX: R33.9 Retention of urine, unspecified (principal)

== ENCOUNTER 2024-02-02 05:25 | Emergency (ER) | payer MEDICAID, OTHER ==
[~2024-02-02] VITALS: Ht 172.7 cm; Wt 78.0 kg
[2024-02-02 06:05] LABS: BASO % 0.3 % (0.0-1.0); EOS % 0.1 % (0.0-3.0); HEMATOCRIT 41.8 % (42.0-52.0); LYMPH # 2.9 10^3/uL (1.5-5.0); LYMPH % 27.9 % (24.0-44.0); MEAN CORPUSCULAR HEMOGLOBIN 29.2 pg (27.0-33.0); MEAN CORPUSCULAR HGB CONC 33.5 g/dl (32.0-36.5); MEAN CORPUSCULAR VOLUME 87.1 fl (80.0-96.0); MONO # 0.7 10^3/uL (0.0-0.8); MONO % 6.3 % (2.0-8.0); NEUTROPHILS # 6.7 10^3/uL (1.5-8.5); WHITE BLOOD COUNT 10.3 10^3/uL (4.0-10.0)
[2024-02-02] MEDS: NS 1,000 ML IV ONE ×2 (06:11→08:14)
[2024-02-02] MEDS: PANTOPRAZOLE 40MG VIAL IV ONE (06:11)
[2024-02-02 06:21] LABS: ALBUMIN 3.4 G/DL (3.2-5.2); ALKALINE PHOSPHATASE 95 U/L (46-116); ALT/SGPT 25 U/L (7.0-40); AST/SGOT 33 U/L (<34); BILIRUBIN,DIRECT 0.1 MG/DL (<0.4); BILIRUBIN,TOTAL 0.4 MG/DL (0.3-1.2); BLOOD UREA NITROGEN 17 MG/DL (9-23); CALCIUM LEVEL 9.7 MG/DL (8.5-10.1); CARBON DIOXIDE LEVEL 22 MMOL/L (20-31); CHLORIDE LEVEL 101 MMOL/L (98-107); CPK CREATINE PHOSPHOKINASE 200 U/L (46-171); CREATININE FOR GFR 0.64 MG/DL (0.70-1.30); GLOMERULAR FILTRATION RATE > 60.0 (>60); GLUCOSE, FASTING 337 MG/DL (60-100); LIPASE 19 U/L (12-53); POTASSIUM SERUM 5.5 MMOL/L (3.5-5.1); SODIUM LEVEL 133 MMOL/L (136-145); TOTAL PROTEIN 6.9 G/DL (5.7-8.2)
[2024-02-02 06:48] LABS: PLATELET COUNT, AUTOMATED 237 10^3/uL (150-450)
[2024-02-02 07:43] LABS: AMPHETAMINES LEVEL URINE POSITIVE (NEGATIVE); BARBITURATES URINE NEGATIVE (NEGATIVE); BENZODIAZEPINES URINE NEGATIVE (NEGATIVE); CANNABINOIDS URINE NEGATIVE (NEGATIVE); COCAINE METABOLITE URINE NEGATIVE (NEGATIVE); METHADONE URINE NEGATIVE (NEGATIVE); OPIATES URINE NEGATIVE (NEGATIVE); PHENCYCLIDINE URINE NEGATIVE (NEGATIVE)
[2024-02-02 07:46] LABS: CK-MB VALUE MASS 2.9 NG/ML (<3.6)
[2024-02-02 07:52] LABS: MB/CK RELATIVE INDEX 1.61 (< OR =4)
[2024-02-02 08:23] LABS: FREE T4 2.78 NG/DL (0.89-1.76); THYROID STIMULATING HORMONE 0.008 uIU/ML (0.55-4.78)
[2024-02-02 08:55] VITALS: BP 131/71
[2024-02-02] MEDS: METOPROLOL TART 25 MG TABLET PO ONE (08:55)
[2024-02-02] MEDS: MULTIVITAMIN -ADULT INJECTION 10 ML, THIAMINE INJection 100 MG, FOLIC ACID 1 MG in NS 1... IV ONE (09:57)
[2024-02-02] MEDS ORDERED: METO1TAB87 PO (10:41)
[2024-02-02 11:00] VITALS: BP 124/75; TEMP 97.1; O2SAT 100
== END 2024-02-02 11:11 | disposition home or self-care (01) ==
LOC: M ED 05:25
DX: R07.9 Chest pain, unspecified (principal); E03.9 Hypothyroidism, unspecified; R00.0 Tachycardia, unspecified; E11.9 Type 2 diabetes mellitus without complications; I10 Essential (primary) hypertension; E78.5 Hyperlipidemia, unspecified; K21.9 Gastro-esophageal reflux disease without esophagitis; F17.210 Nicotine dependence, cigarettes, uncomplicated; F10.10 Alcohol abuse, uncomplicated; F19.10 Other psychoactive substance abuse, uncomplicated; Z79.1 Long term (current) use of non-steroidal anti-inflammatories (NSAID); Z79.84 Long term (current) use of oral hypoglycemic drugs; Z79.899 Other long term (current) drug therapy
CPT/HCPCS: 71045; 80048; 80076; 80307; 82550; 82553; 83690; 83880; 84439; 84443; 84484; 85025; 93005; 93041; 94760; 96361; 96365; 96374; 99285; C9113; J3411

== ENCOUNTER → 2024-02-06 | Outpatient (REF) | payer MEDICAID ==
[~2024-02-06] MED LIST changes: +METO1TAB87 PO
[2024-02-06 17:29] LABS: CREATININE, URINE 185.5 MG/DL
[2024-02-06 17:30] LABS: MAU/CREAT RATIO 3.7 MCG/MG (0.0-30.0)
== END ==
LOC: M LAB REF 16:33
PROVIDERS: ATTEND Nurse Practitioner Family
DX: E11.65 Type 2 diabetes mellitus with hyperglycemia (principal)

== ENCOUNTER 2024-12-30 02:49 | Emergency (ER) | payer MEDICAID, OTHER ==
[~2024-12-30] VITALS: Ht 172.7 cm; Wt 86.4 kg
[~2024-12-30 02:49] MED LIST changes: +GLIP-320 PO; +GLIP10TA15 PO; -GLIP10TA18 PO; -GLIP10TA6 PO; +ISON1TAB5; +ISON1TAB5 PO; -ISON300T18; -ISON300T18 PO; +PREG-35 PO; -PREG100CA PO
[2024-12-30 04:26] LABS: BASO % 0.2 % (0.0-1.0); EOS # 0.1 10^3/uL (0.0-0.5); EOS % 1.2 % (0.0-3.0); HEMATOCRIT 43.4 % (42.0-52.0); HEMOGLOBIN 13.8 g/dl (13.5-17.5); LYMPH # 1.9 10^3/uL (1.5-5.0); LYMPH % 32.1 % (24.0-44.0); MEAN CORPUSCULAR HEMOGLOBIN 28.6 pg (27.0-33.0); MEAN CORPUSCULAR HGB CONC 31.8 g/dl (32.0-36.5); MONO # 0.6 10^3/uL (0.0-0.8); MONO % 10.2 % (2.0-8.0); NEUTROPHILS # 3.3 10^3/uL (1.5-8.5); PLATELET COUNT, AUTOMATED 171 10^3/uL (150-450); RED BLOOD COUNT 4.82 10^6/uL (4.30-6.10); WHITE BLOOD COUNT 5.9 10^3/uL (4.0-10.0)
[2024-12-30 04:48] LABS: KETONE, URINE AUTO RFX NEGATIVE (NEGATIVE); LEUKOCYTE ESTERASE UR AUTO RFX NEGATIVE (NEGATIVE); MUCUS, URINE RFX MODERATE (NEGATIVE); NITRITE, URINE AUTO RFX NEGATIVE (NEGATIVE); RBC, URINE AUTO RFX 2 /HPF (0-3); SQUAM EPITHELIAL CELL UR AURFX 1 /HPF (0-6); WBC, URINE AUTO RFX 3 /HPF (0-3)
[2024-12-30 05:42] LABS: CK-MB VALUE MASS 2.7 NG/ML (<3.6); LIPASE 26 U/L (12-53)
[2024-12-30 05:44] LABS: ALBUMIN 3.3 G/DL (3.2-5.2); ALKALINE PHOSPHATASE 193 U/L (40-129); ALT/SGPT 223 U/L (7.0-40); AST/SGOT 217 U/L (<34); BILIRUBIN,DIRECT 1.5 MG/DL (<0.4); BILIRUBIN,TOTAL 2.3 MG/DL (0.3-1.2); CPK CREATINE PHOSPHOKINASE 171 U/L (46-171); MB/CK RELATIVE INDEX 1.57 (< OR =4); TOTAL PROTEIN 7.3 G/DL (5.7-8.2)
[2024-12-30] MEDS: KETOROLAC 30 MG/ML 1ML VIAL IV ONE (05:51)
[2024-12-30] MEDS: NS (Normal Saline) 0.9% 1,000 ML IV ONE (06:36)
[2024-12-30 06:43] LABS: BARBITURATES URINE NEGATIVE (NEGATIVE); BENZODIAZEPINES URINE NEGATIVE (NEGATIVE); METHADONE URINE NEGATIVE (NEGATIVE); OPIATES URINE NEGATIVE (NEGATIVE)
[2024-12-30 06:44] LABS: CANNABINOIDS URINE NEGATIVE (NEGATIVE); PHENCYCLIDINE URINE NEGATIVE (NEGATIVE)
[2024-12-30 06:45] LABS: AMPHETAMINES LEVEL URINE POSITIVE (NEGATIVE); CK-MB VALUE MASS 2.7 NG/ML (<3.6); COCAINE METABOLITE URINE POSITIVE (NEGATIVE)
[2024-12-30 06:46] LABS: ETHYL ALCOHOL (ETHANOL) < 0.003 % (0.000-0.010)
[2024-12-30 06:47] LABS: BLOOD UREA NITROGEN 9 MG/DL (9-23); CALCIUM LEVEL 8.5 MG/DL (8.5-10.1); CARBON DIOXIDE LEVEL 25 MMOL/L (20-31); CHLORIDE LEVEL 106 MMOL/L (98-107); CPK CREATINE PHOSPHOKINASE 168 U/L (46-171); CREATININE FOR GFR 0.63 MG/DL (0.70-1.30); GLOMERULAR FILTRATION RATE > 90.0 (>56); GLUCOSE, FASTING 145 MG/DL (60-100); POTASSIUM SERUM 3.8 MMOL/L (3.5-5.1); SALICYLATE LEVEL < 3.0 MG/DL (<30); SODIUM LEVEL 143 MMOL/L (136-145)
[2024-12-30 07:49] LABS: HEPATITIS B SURFACE ANTIGEN NEGATIVE (NEGATIVE)
[2024-12-30 07:50] VITALS: BP 140/95
[2024-12-30] MEDS: amLODIPine 5 MG TAB PO ONE (07:50)
[2024-12-30 08:10] LABS: HEPATITIS C VIRUS ABY INDEX 0.07 INDEX (<0.8)
[2024-12-30 08:11] LABS: HEPATITIS B CORE ANTIBODY IGM NEGATIVE (NEGATIVE)
[2024-12-30] MEDS ORDERED: HOME MED LIST COMPLETE! XX SCH (08:20)
[2024-12-30] MEDS: LORazepam 2 MG/ML 1ML VIAL IV STA (09:57)
[2024-12-30 12:42] LABS: BASO % 0.3 % (0.0-1.0); EOS # 0.1 10^3/uL (0.0-0.5); EOS % 1.5 % (0.0-3.0); LYMPH # 2.6 10^3/uL (1.5-5.0); LYMPH % 39.1 % (24.0-44.0); MONO # 0.8 10^3/uL (0.0-0.8); MONO % 12.2 % (2.0-8.0); NEUTROPHILS # 3.1 10^3/uL (1.5-8.5); NEUTROPHILS % 46.6 % (36.0-66.0); WHITE BLOOD COUNT 6.6 10^3/uL (4.0-10.0)
[2024-12-30 13:08] LABS: ALBUMIN 2.9 G/DL (3.2-5.2); BILIRUBIN,DIRECT 1.3 MG/DL (<0.4); TOTAL PROTEIN 6.6 G/DL (5.7-8.2)
[2024-12-30] MEDS ORDERED: ONDA-282 PO (13:59)
[2024-12-30 14:14] VITALS: BP 124/89; TEMP 97; O2SAT 93
== END 2024-12-30 14:15 | disposition home or self-care (01) ==
LOC: M ED 02:49
DX: K70.11 Alcoholic hepatitis with ascites (principal); I25.2 Old myocardial infarction; E11.9 Type 2 diabetes mellitus without complications; K21.9 Gastro-esophageal reflux disease without esophagitis; F17.210 Nicotine dependence, cigarettes, uncomplicated; F15.10 Other stimulant abuse, uncomplicated; F10.10 Alcohol abuse, uncomplicated; Z91.09 Other allergy status, other than to drugs and biological substances; Z79.899 Other long term (current) drug therapy
CPT/HCPCS: 71045; 74176; 74181; 80048; 80074; 80076; 80143; 80307; 81001; 82077; 82550; 82553; 83605; 83690; 84484; 85025; 93005; 96374; 96375; 99284; J1885; J2060